=== PATIENT | female | born 1965 | race Hispanic/Latino ===

== ENCOUNTER 2017-11-22 22:22 | Emergency (ER) | payer SELFPAY | END 2017-11-22 23:05 | disposition home or self-care (01) | LOC: EDH 22:22 | DX: J10.1 Influenza due to other identified influenza virus with other respiratory manifestations (principal); I10 Essential (primary) hypertension ==

== ENCOUNTER 2019-01-25 14:00 | Emergency (ER) | payer SELFPAY ==
[2019-01-25 14:36] LABS: APPEARANCE,URINE TURBID (CLEAR); BILIRUBIN,URINE NEGATIVE (NEGATIVE); COLOR,URINE YELLOW (YELLOW); GLUCOSE, URINE (UA) NEGATIVE (NEGATIVE); KETONES,URINE NEGATIVE (NEGATIVE); LEUKOCYTE ESTERASE ,URINE LARGE (NEGATIVE); NITRATE,URINE NEGATIVE (NEGATIVE); OCCULT BLOOD,URINE LARGE (NEGATIVE); PH,URINE 6.5 (5.0-8.0); PROTEIN,URINE 100 mg/dL (NEGATIVE); UROBILINOGEN,URINE 0.2 mg/dL (0.2-1.0)
[2019-01-25 14:45] LABS: BACTERIA,URINE Few /HPF (None Seen); MUCUS,URINE Few LPF (None Seen); SQUAMOUS EPITHELIAL CELL,UR Few /HPF (0-2); WBC,URINE 26-50 /HPF (0-1)
[2019-01-25] MEDS ORDERED: NITROFURANTOIN MONOHYD/M-CRYST 100 MG CAPSULE PO ONE (15:15)
== END 2019-01-25 16:25 | disposition home or self-care (01) ==
LOC: EDH 14:00
DX: N39.0 Urinary tract infection, site not specified (principal); I10 Essential (primary) hypertension; Z87.891 Personal history of nicotine dependence
CPT/HCPCS: 81001

== ENCOUNTER 2019-02-17 20:47 | Emergency (ER) | payer SELFPAY | END 2019-02-17 21:25 | disposition home or self-care (01) | LOC: EDH 20:47 | DX: B02.9 Zoster without complications (principal); B36.0 Pityriasis versicolor; I10 Essential (primary) hypertension ==

== ENCOUNTER 2020-02-15 01:27 | Inpatient (IN) | payer OTHER, SELFPAY ==
[~2020-02-15] VITALS: Ht 152.4 cm; Wt 104.5 kg
[2020-02-15] MEDS ORDERED: DEXAMETHASONE SOD PHOSPHATE 10MG/ML 1ML VIAL ONE ×2 (01:47→21:08)
[2020-02-15 01:58] LABS: BASOPHILS % (AUTO) 0.3 % (0.0-5.0); HEMATOCRIT 41.9 % (36-48); LYMPHOCYTES % (AUTO) 11.1 % (21.0-51.0); MEAN CORPUSCULAR HEMOGLOBIN 30.4 pg (27.0-33.0); MEAN CORPUSCULAR HGB CONC 35.1 g/dL (32.0-36.0); MEAN CORPUSCULAR VOLUME 86.6 fL (79-99); MONOCYTES % (AUTO) 4.9 % (3.0-13.0); NEUTROPHILS % (AUTO) 82.2 % (40.0-77.0); PLATELET COUNT (AUTO) 285 K/uL (130-400); RED BLOOD CELL COUNT(AUTO) 4.84 MIL/uL (4.00-5.50); RED CELL DISTRIBUTION WIDTH 12.8 % (11.0-15.5)
[2020-02-15 02:08] LABS: INR 1.03 (0.85-1.15)
[2020-02-15 02:09] LABS: PARTIAL THROMBOPLASTIN TIME 21.2 SEC (26.3-35.5)
[2020-02-15 02:34] LABS: CREATININE 1.3 mg/dL (0.5-1.5); POTASSIUM 3.4 mmol/L (3.5-5.1)
[2020-02-15 02:36] LABS: ALBUMIN 2.7 g/dL (3.5-5.0); BILIRUBIN,TOTAL 0.4 mg/dL (0.2-1.0); TOTAL PROTEIN, SERUM 8.2 g/dL (6.0-8.3)
[2020-02-15] MEDS ORDERED: CEFTRIAXONE SODIUM 1 GM ONE (02:49)
[2020-02-15] MEDS ORDERED: AZITHROMYCIN 500MG+NS 250ML 250 ML IV ONE (02:49)
[2020-02-15] MEDS ORDERED: ACETAMINOPHEN 325 MG TAB ONE ×3 (02:50→18:38)
[2020-02-15 02:55] LABS: APPEARANCE,URINE Clear (CLEAR); BILIRUBIN,URINE Negative (NEGATIVE); COLOR,URINE Yellow (YELLOW); GLUCOSE, URINE (UA) 500 mg/dL (NEGATIVE); KETONES,URINE Negative (NEGATIVE); LEUKOCYTE ESTERASE ,URINE Moderate (NEGATIVE); NITRATE,URINE Negative (NEGATIVE); OCCULT BLOOD,URINE Negative (NEGATIVE); PH,URINE 6.5 (5.0-8.0); PROTEIN,URINE POS 1+ mg/dL (NEGATIVE); UROBILINOGEN,URINE 0.2 mg/dL (0.2-1.0)
[2020-02-15 03:09] LABS: BACTERIA,URINE Rare /HPF (None Seen); MUCUS,URINE Rare LPF (None Seen); RBC,URINE 0-1 /HPF (0-1); SQUAMOUS EPITHELIAL CELL,UR Few /HPF (0-2); YEAST,URINE BUDDING None Seen /HPF (None Seen)
[2020-02-15] MEDS ORDERED: PHARMACY COMMUNICATION**REMDESIVIR ORDER MISC SCH (05:15)
[2020-02-15] MEDS: DOXYCYCLINE 100MG+NS 250ML 250 ML IV SCH ×2 (05:15→17:15)
[2020-02-15] MEDS ORDERED: ERGOCALCIFEROL (VITAMIN D2) 50,000 UNIT CAPSULE PO ONE (05:15)
[2020-02-15] MEDS: CEFTRIAXONE SODIUM 1 GM IV SCH (05:15)
[2020-02-15] MEDS: DEXAMETHASONE SOD PHOSPHATE 4 MG/ML 1ML VIAL IVP SCH (05:15)
[2020-02-15 05:53] LABS: ABG BASE EXCESS -1.3 mmol/L (-2.0-3.0); ABG HCO3 23.4 mmol/L (21.0-28.0); ABG PCO2 39 mmHg (32-45)
[2020-02-15] MEDS ORDERED: DOXYCYCLINE 100MG+NS 250ML 250 ML IV ONE ×2 (06:19→16:17)
[2020-02-15] MEDS ORDERED: ERGOCALCIFEROL (VITAMIN D2) 50,000 UNIT CAPSULE ONE (06:19)
[2020-02-15 07:19] LABS: MAGNESIUM 2.3 mg/dL (1.80-2.40); PHOSPHORUS 4.1 mg/dL (2.5-4.9)
[2020-02-15] MEDS: INSULIN HUMULIN R 100 UNIT/ML 3ML SQ SCH ×7 (07:30→21:00)
[2020-02-15 07:56] LABS: ALBUMIN 2.4 g/dL (3.5-5.0); BILIRUBIN,TOTAL 0.3 mg/dL (0.2-1.0); CREATININE 1.1 mg/dL (0.5-1.5); POTASSIUM 3.7 mmol/L (3.5-5.1); TOTAL PROTEIN, SERUM 7.4 g/dL (6.0-8.3)
[2020-02-15] MEDS ORDERED: ENOXAPARIN SODIUM 60 MG/0.6 ML SQ ONE ×2 (08:15→20:57)
[2020-02-15] MEDS ORDERED: ASCORBIC ACID 500 MG TAB ONE (08:16)
[2020-02-15] MEDS ORDERED: ZINC SULFATE 220 CAPSULE ONE (08:16)
[2020-02-15] MEDS ORDERED: FAMOTIDINE/PF 20 MG/2 ML VIAL IV ONE ×2 (08:16→20:58)
[2020-02-15] MEDS ORDERED: INSULIN HUMULIN R 100 UNIT/ML 3ML ONE ×3 (08:17→16:18)
[2020-02-15] MEDS: ENOXAPARIN SODIUM 60 MG/0.6 ML SQ SCH ×2 (09:00→21:00)
[2020-02-15] MEDS: ASCORBIC ACID 500 MG TAB PO SCH (09:00)
[2020-02-15] MEDS: FAMOTIDINE/PF 20 MG/2 ML VIAL IV SCH ×2 (09:00→21:00)
[2020-02-15] MEDS: ZINC SULFATE 220 CAPSULE PO SCH (09:00)
[2020-02-15] MEDS ORDERED: REMDESIVIR (EUA) 520 200 MG in SODIUM CHLORIDE 0.9% 250 ML IV ONE (10:00)
[2020-02-15] MEDS ORDERED: COMPOUND IV REFRIGERATED 1 EACH IVSOLN MISC PRN (10:00)
[2020-02-15] MEDS ORDERED: ONDANSETRON HCL 4 MG/2 ML VIAL ONE (10:58)
[2020-02-15] MEDS: INSULIN GLARGINE 100 UNITS/ML 10 ML VIAL SQ SCH (21:00)
[2020-02-16] MEDS: DOXYCYCLINE 100MG+NS 250ML 250 ML IV SCH ×2 (05:15→17:36)
[2020-02-16] MEDS: DEXAMETHASONE SOD PHOSPHATE 4 MG/ML 1ML VIAL IVP SCH ×2 (05:15→21:12)
[2020-02-16] MEDS: CEFTRIAXONE SODIUM 1 GM IV SCH (05:15)
[2020-02-16] MEDS ORDERED: DOXYCYCLINE 100MG+NS 250ML 250 ML IV ONE (05:21)
[2020-02-16] MEDS ORDERED: DEXAMETHASONE SOD PHOSPHATE 4 MG/ML 1ML VIAL ONE (05:21)
[2020-02-16] MEDS ORDERED: CEFTRIAXONE SODIUM 1 GM ONE (05:22)
[2020-02-16] MEDS ORDERED: ACETAMINOPHEN 325 MG TAB ONE (05:22)
[2020-02-16] MEDS: PHARMACY COMMUNICATION MISC SCH (06:00)
[2020-02-16] MEDS: INSULIN HUMULIN R 100 UNIT/ML 3ML SQ SCH ×7 (07:30→21:00)
[2020-02-16 08:31] LABS: MEAN CORPUSCULAR HEMOGLOBIN 30.4 pg (27.0-33.0); MEAN CORPUSCULAR HGB CONC 33.6 g/dL (32.0-36.0); MEAN CORPUSCULAR VOLUME 90.5 fL (79-99); RED BLOOD CELL COUNT(AUTO) 4.31 MIL/uL (4.00-5.50); RED CELL DISTRIBUTION WIDTH 12.5 % (11.0-15.5); WHITE BLOOD COUNT (AUTO) 9.7 K/uL (4.8-10.8)
[2020-02-16 08:41] LABS: POTASSIUM 3.8 mmol/L (3.5-5.1)
[2020-02-16 08:46] LABS: ALBUMIN 2.5 g/dL (3.5-5.0); BILIRUBIN,TOTAL 0.4 mg/dL (0.2-1.0); TOTAL PROTEIN, SERUM 7.4 g/dL (6.0-8.3)
[2020-02-16 08:55] LABS: CRP QUANTITATIVE 213.7 mg/L (0.00-9.0)
[2020-02-16] MEDS: ZINC SULFATE 220 CAPSULE PO SCH (09:47)
[2020-02-16] MEDS: FAMOTIDINE/PF 20 MG/2 ML VIAL IV SCH ×2 (09:47→21:11)
[2020-02-16] MEDS: ASCORBIC ACID 500 MG TAB PO SCH (09:47)
[2020-02-16] MEDS: ENOXAPARIN SODIUM 60 MG/0.6 ML SQ SCH ×2 (09:48→21:11)
[2020-02-16] MEDS: GUAIFENESIN-CODEINE 5 ML SYRUP PO PRN ×2 (10:04→14:11)
[2020-02-16] MEDS: REMDESIVIR (EUA) 520 100 MG in SODIUM CHLORIDE 0.9% 250 ML IV SCH (13:10)
[2020-02-16 13:22] VITALS: BP 119/71
[2020-02-16 16:00] VITALS: BP 156/75
[2020-02-16] MEDS ORDERED: DEXAMETHASONE SOD PHOSPHATE 4 MG/ML 1ML VIAL IVP SCH (19:15)
[2020-02-16 20:00] VITALS: BP 142/66
[2020-02-16] MEDS: INSULIN GLARGINE 100 UNITS/ML 10 ML VIAL SQ SCH (21:00)
[2020-02-16 23:48] VITALS: BP 113/92
[2020-02-17 04:39] VITALS: BP 115/54
[2020-02-17 04:41] LABS: BASOPHILS % (AUTO) 0.2 % (0.0-5.0); EOSINOPHILS % (AUTO) 0.2 % (0.0-8.0); HEMATOCRIT 37.1 % (36-48); LYMPHOCYTES % (AUTO) 9.6 % (21.0-51.0); MEAN CORPUSCULAR HEMOGLOBIN 30.5 pg (27.0-33.0); MEAN CORPUSCULAR HGB CONC 34.5 g/dL (32.0-36.0); MEAN CORPUSCULAR VOLUME 88.5 fL (79-99); MONOCYTES % (AUTO) 2.2 % (3.0-13.0); NEUTROPHILS % (AUTO) 86.9 % (40.0-77.0); PLATELET COUNT (AUTO) 196 K/uL (130-400); RED BLOOD CELL COUNT(AUTO) 4.19 MIL/uL (4.00-5.50); RED CELL DISTRIBUTION WIDTH 12.4 % (11.0-15.5); WHITE BLOOD COUNT (AUTO) 9.9 K/uL (4.8-10.8)
[2020-02-17 04:57] LABS: ALBUMIN 2.3 g/dL (3.5-5.0); BILIRUBIN,TOTAL 0.5 mg/dL (0.2-1.0); CREATININE 0.9 mg/dL (0.5-1.5); POTASSIUM 3.4 mmol/L (3.5-5.1); TOTAL PROTEIN, SERUM 7.3 g/dL (6.0-8.3)
[2020-02-17 05:05] LABS: CRP QUANTITATIVE 227.4 mg/L (0.00-9.0)
[2020-02-17] MEDS ORDERED: POTASSIUM CHLORIDE 20MEQ/100ML 100 ML IV PRN (05:15)
[2020-02-17] MEDS ORDERED: POTASSIUM CHLORIDE 10% ELIXIR 20 MEQ/15 ML UDCUP PO PRN (05:15)
[2020-02-17] MEDS ORDERED: LIDOCAINE HCL-MPF 1% 2ML VIAL IV PRN (05:15)
[2020-02-17] MEDS: PHARMACY COMMUNICATION MISC SCH (05:30)
[2020-02-17] MEDS: INSULIN HUMULIN R 100 UNIT/ML 3ML SQ SCH ×7 (06:10→21:00)
[2020-02-17] MEDS: POTASSIUM CHLORIDE 20 MEQ ERTAB PO PRN (06:47)
[2020-02-17 08:00] VITALS: BP 125/53
[2020-02-17] MEDS: ASCORBIC ACID 500 MG TAB PO SCH (09:02)
[2020-02-17] MEDS: ZINC SULFATE 220 CAPSULE PO SCH (09:02)
[2020-02-17] MEDS: FAMOTIDINE/PF 20 MG/2 ML VIAL IV SCH ×2 (09:02→20:42)
[2020-02-17] MEDS: DEXAMETHASONE SOD PHOSPHATE 4 MG/ML 1ML VIAL IVP SCH ×2 (09:02→20:43)
[2020-02-17] MEDS: GUAIFENESIN-CODEINE 5 ML SYRUP PO PRN ×2 (09:03→20:50)
[2020-02-17] MEDS: ENOXAPARIN SODIUM 60 MG/0.6 ML SQ SCH ×2 (09:03→20:44)
[2020-02-17] MEDS: ONDANSETRON HCL 4 MG/2 ML VIAL IV PRN (09:14)
[2020-02-17 12:00] VITALS: BP 123/64
[2020-02-17] MEDS: REMDESIVIR (EUA) 520 100 MG in SODIUM CHLORIDE 0.9% 250 ML IV SCH (12:54)
[2020-02-17 16:00] VITALS: BP 115/71
[2020-02-17 20:30] VITALS: BP 128/65
[2020-02-17] MEDS: INSULIN GLARGINE 100 UNITS/ML 10 ML VIAL SQ SCH (21:39)
[2020-02-18] VITALS (8 sets, daily range): BP systolic 107–148; BP diastolic 55–92
[2020-02-18 04:48] LABS: BASOPHILS % (AUTO) 0.1 % (0.0-5.0); EOSINOPHILS % (AUTO) 0.1 % (0.0-8.0); HEMATOCRIT 40.6 % (36-48); LYMPHOCYTES % (AUTO) 7.3 % (21.0-51.0); MEAN CORPUSCULAR HEMOGLOBIN 30.4 pg (27.0-33.0); MEAN CORPUSCULAR HGB CONC 34.2 g/dL (32.0-36.0); MEAN CORPUSCULAR VOLUME 88.8 fL (79-99); NEUTROPHILS % (AUTO) 89.7 % (40.0-77.0); PLATELET COUNT (AUTO) 217 K/uL (130-400); RED BLOOD CELL COUNT(AUTO) 4.57 MIL/uL (4.00-5.50); RED CELL DISTRIBUTION WIDTH 12.3 % (11.0-15.5)
[2020-02-18 05:16] LABS: ALBUMIN 2.4 g/dL (3.5-5.0); BILIRUBIN,TOTAL 0.6 mg/dL (0.2-1.0); CREATININE 0.9 mg/dL (0.5-1.5); POTASSIUM 3.6 mmol/L (3.5-5.1); TOTAL PROTEIN, SERUM 7.8 g/dL (6.0-8.3)
[2020-02-18] MEDS: PHARMACY COMMUNICATION MISC SCH (05:31)
[2020-02-18] MEDS: INSULIN HUMULIN R 100 UNIT/ML 3ML SQ SCH ×7 (05:39→21:00)
[2020-02-18 06:13] LABS: CRP QUANTITATIVE 261.7 mg/L (0.00-9.0)
[2020-02-18] MEDS: ASCORBIC ACID 500 MG TAB PO SCH (09:01)
[2020-02-18] MEDS: ZINC SULFATE 220 CAPSULE PO SCH (09:01)
[2020-02-18] MEDS: FAMOTIDINE/PF 20 MG/2 ML VIAL IV SCH ×2 (09:02→21:41)
[2020-02-18] MEDS: ENOXAPARIN SODIUM 60 MG/0.6 ML SQ SCH ×2 (09:02→21:44)
[2020-02-18] MEDS: DEXAMETHASONE SOD PHOSPHATE 4 MG/ML 1ML VIAL IVP SCH ×2 (09:06→21:43)
[2020-02-18] MEDS: GUAIFENESIN-CODEINE 5 ML SYRUP PO PRN ×3 (09:10→21:44)
[2020-02-18] MEDS: ACETAMINOPHEN 325 MG TAB PO PRN (09:17)
[2020-02-18] MEDS: REMDESIVIR (EUA) 520 100 MG in SODIUM CHLORIDE 0.9% 250 ML IV SCH (12:27)
[2020-02-18] MEDS: INSULIN GLARGINE 100 UNITS/ML 10 ML VIAL SQ SCH (21:41)
[2020-02-19] VITALS: BP 105/73
[2020-02-19] MEDS: ACETAMINOPHEN 325 MG TAB PO PRN ×2 (00:53→18:34)
[2020-02-19 04:00] VITALS: BP 109/58
[2020-02-19 05:04] LABS: BASOPHILS % (AUTO) 0.1 % (0.0-5.0); HEMATOCRIT 38.1 % (36-48); LYMPHOCYTES % (AUTO) 5.4 % (21.0-51.0); MEAN CORPUSCULAR HEMOGLOBIN 30.5 pg (27.0-33.0); MEAN CORPUSCULAR HGB CONC 34.4 g/dL (32.0-36.0); MEAN CORPUSCULAR VOLUME 88.6 fL (79-99); MONOCYTES % (AUTO) 1.7 % (3.0-13.0); NEUTROPHILS % (AUTO) 91.5 % (40.0-77.0); PLATELET COUNT (AUTO) 181 K/uL (130-400); RED CELL DISTRIBUTION WIDTH 12.2 % (11.0-15.5); WHITE BLOOD COUNT (AUTO) 13.2 K/uL (4.8-10.8)
[2020-02-19 05:32] LABS: ALBUMIN 2.2 g/dL (3.5-5.0); BILIRUBIN,TOTAL 0.6 mg/dL (0.2-1.0); CREATININE 0.9 mg/dL (0.5-1.5); POTASSIUM 3.4 mmol/L (3.5-5.1); TOTAL PROTEIN, SERUM 7.6 g/dL (6.0-8.3)
[2020-02-19 06:04] LABS: CRP QUANTITATIVE 253.9 mg/L (0.00-9.0)
[2020-02-19] MEDS: GUAIFENESIN-CODEINE 5 ML SYRUP PO PRN ×2 (06:06→12:27)
[2020-02-19] MEDS: INSULIN HUMULIN R 100 UNIT/ML 3ML SQ SCH ×7 (07:08→21:00)
[2020-02-19 08:00] VITALS: BP 133/59
[2020-02-19] MEDS: ZINC SULFATE 220 CAPSULE PO SCH (08:29)
[2020-02-19] MEDS: ASCORBIC ACID 500 MG TAB PO SCH (08:29)
[2020-02-19] MEDS: DEXAMETHASONE SOD PHOSPHATE 4 MG/ML 1ML VIAL IVP SCH ×2 (08:30→20:00)
[2020-02-19] MEDS: FAMOTIDINE/PF 20 MG/2 ML VIAL IV SCH ×2 (08:30→19:59)
[2020-02-19] MEDS: ENOXAPARIN SODIUM 60 MG/0.6 ML SQ SCH ×2 (08:31→20:01)
[2020-02-19] MEDS: PHARMACY COMMUNICATION MISC SCH (11:30)
[2020-02-19 12:00] VITALS: BP 128/58
[2020-02-19] MEDS: REMDESIVIR (EUA) 520 100 MG in SODIUM CHLORIDE 0.9% 250 ML IV SCH (13:40)
[2020-02-19 16:00] VITALS: BP 128/84
[2020-02-19 19:00] VITALS: BP 123/66
[2020-02-19] MEDS: INSULIN GLARGINE 100 UNITS/ML 10 ML VIAL SQ SCH (21:00)
[2020-02-20] VITALS (7 sets, daily range): BP systolic 124–163; BP diastolic 60–81
[2020-02-20] MEDS: GUAIFENESIN-CODEINE 5 ML SYRUP PO PRN ×2 (00:42→08:25)
[2020-02-20 05:49] LABS: BASOPHILS % (AUTO) 0.1 % (0.0-5.0); HEMATOCRIT 38.6 % (36-48); LYMPHOCYTES % (AUTO) 4.5 % (21.0-51.0); MEAN CORPUSCULAR HEMOGLOBIN 30.1 pg (27.0-33.0); MEAN CORPUSCULAR HGB CONC 34.5 g/dL (32.0-36.0); MEAN CORPUSCULAR VOLUME 87.3 fL (79-99); MONOCYTES % (AUTO) 1.3 % (3.0-13.0); NEUTROPHILS % (AUTO) 93.2 % (40.0-77.0); PLATELET COUNT (AUTO) 165 K/uL (130-400); RED BLOOD CELL COUNT(AUTO) 4.42 MIL/uL (4.00-5.50); RED CELL DISTRIBUTION WIDTH 12.1 % (11.0-15.5); WHITE BLOOD COUNT (AUTO) 13.8 K/uL (4.8-10.8)
[2020-02-20 06:05] LABS: BILIRUBIN,TOTAL 0.5 mg/dL (0.2-1.0); CREATININE 0.8 mg/dL (0.5-1.5); MAGNESIUM 1.9 mg/dL (1.80-2.40); POTASSIUM 3.6 mmol/L (3.5-5.1); TOTAL PROTEIN, SERUM 7.2 g/dL (6.0-8.3)
[2020-02-20] MEDS: INSULIN HUMULIN R 100 UNIT/ML 3ML SQ SCH ×7 (06:59→21:32)
[2020-02-20] MEDS: FAMOTIDINE/PF 20 MG/2 ML VIAL IV SCH ×2 (08:22→21:23)
[2020-02-20] MEDS: DEXAMETHASONE SOD PHOSPHATE 4 MG/ML 1ML VIAL IVP SCH ×2 (08:23→21:23)
[2020-02-20] MEDS: ZINC SULFATE 220 CAPSULE PO SCH (08:23)
[2020-02-20] MEDS: ASCORBIC ACID 500 MG TAB PO SCH (08:23)
[2020-02-20] MEDS: POTASSIUM CHLORIDE 20 MEQ ERTAB PO PRN (08:24)
[2020-02-20] MEDS: ENOXAPARIN SODIUM 60 MG/0.6 ML SQ SCH ×2 (08:24→21:30)
[2020-02-20] MEDS ORDERED: MAGNESIUM 2GM PREMIX 50ML 50 ML IV PRN (11:00)
[2020-02-20] MEDS: ACETAMINOPHEN 325 MG TAB PO PRN (12:23)
[2020-02-20 13:06] LABS: ABG BASE EXCESS -2.3 mmol/L (-2.0-3.0); ABG HCO3 20.1 mmol/L (21.0-28.0); ABG OXYGEN SATURATION 93.3 % (95.0-99.0); ABG PCO2 29 mmHg (32-45)
[2020-02-20] MEDS ORDERED: METF500S7 PO (14:52)
[2020-02-20] MEDS ORDERED: ROSU40 PO (14:53)
[2020-02-20] MEDS: INSULIN GLARGINE 100 UNITS/ML 10 ML VIAL SQ SCH (21:27)
[2020-02-21] VITALS (10 sets, daily range): BP systolic 112–153; BP diastolic 47–79
[2020-02-21] MEDS: GUAIFENESIN-CODEINE 5 ML SYRUP PO PRN ×2 (02:13→20:45)
[2020-02-21 04:22] LABS: BASOPHILS % (AUTO) 0.1 % (0.0-5.0); HEMATOCRIT 41.8 % (36-48); LYMPHOCYTES % (AUTO) 4.3 % (21.0-51.0); MEAN CORPUSCULAR HEMOGLOBIN 29.7 pg (27.0-33.0); MEAN CORPUSCULAR HGB CONC 33.7 g/dL (32.0-36.0); MONOCYTES % (AUTO) 1.4 % (3.0-13.0); NEUTROPHILS % (AUTO) 93.1 % (40.0-77.0); PLATELET COUNT (AUTO) 213 K/uL (130-400); RED BLOOD CELL COUNT(AUTO) 4.75 MIL/uL (4.00-5.50); RED CELL DISTRIBUTION WIDTH 12.3 % (11.0-15.5); WHITE BLOOD COUNT (AUTO) 17.3 K/uL (4.8-10.8)
[2020-02-21 04:38] LABS: ALBUMIN 2.1 g/dL (3.5-5.0); BILIRUBIN,TOTAL 0.5 mg/dL (0.2-1.0); CREATININE 0.8 mg/dL (0.5-1.5); MAGNESIUM 2.4 mg/dL (1.80-2.40); POTASSIUM 3.8 mmol/L (3.5-5.1); TOTAL PROTEIN, SERUM 7.8 g/dL (6.0-8.3)
[2020-02-21 05:42] LABS: CRP QUANTITATIVE 209.8 mg/L (0.00-9.0)
[2020-02-21] MEDS: ZINC SULFATE 220 CAPSULE PO SCH (08:22)
[2020-02-21] MEDS: FAMOTIDINE/PF 20 MG/2 ML VIAL IV SCH ×2 (08:22→20:48)
[2020-02-21] MEDS: DEXAMETHASONE SOD PHOSPHATE 4 MG/ML 1ML VIAL IVP SCH ×2 (08:22→20:45)
[2020-02-21] MEDS: ASCORBIC ACID 500 MG TAB PO SCH (08:22)
[2020-02-21] MEDS: ENOXAPARIN SODIUM 60 MG/0.6 ML SQ SCH ×2 (08:23→20:47)
[2020-02-21] MEDS: INSULIN HUMULIN R 100 UNIT/ML 3ML SQ SCH ×7 (08:24→21:03)
[2020-02-21] MEDS ORDERED: PHARMACY COMMUNICATION MISC SCH (12:00)
[2020-02-21] MEDS ORDERED: COMPOUND IV REFRIGERATED 1 EACH IVSOLN MISC PRN (15:00)
[2020-02-21] MEDS ORDERED: REMDESIVIR (EUA) 520 200 MG in SODIUM CHLORIDE 0.9% 250 ML IV ONE (15:00)
[2020-02-21] MEDS: ACETAMINOPHEN 325 MG TAB PO PRN (20:48)
[2020-02-21] MEDS: INSULIN GLARGINE 100 UNITS/ML 10 ML VIAL SQ SCH (21:03)
[2020-02-22] VITALS (7 sets, daily range): BP systolic 106–141; BP diastolic 56–77
[2020-02-22] MEDS ORDERED: PHARMACY COMMUNICATION MISC SCH (06:00)
[2020-02-22 06:11] LABS: BASOPHILS % (AUTO) 0.1 % (0.0-5.0); HEMATOCRIT 41.7 % (36-48); MEAN CORPUSCULAR HEMOGLOBIN 30.5 pg (27.0-33.0); MEAN CORPUSCULAR HGB CONC 33.8 g/dL (32.0-36.0); MEAN CORPUSCULAR VOLUME 90.1 fL (79-99); MONOCYTES % (AUTO) 1.6 % (3.0-13.0); NEUTROPHILS % (AUTO) 91.7 % (40.0-77.0); PLATELET COUNT (AUTO) 163 K/uL (130-400); RED BLOOD CELL COUNT(AUTO) 4.63 MIL/uL (4.00-5.50); RED CELL DISTRIBUTION WIDTH 12.5 % (11.0-15.5)
[2020-02-22 06:40] LABS: BILIRUBIN,TOTAL 0.4 mg/dL (0.2-1.0); POTASSIUM 4.2 mmol/L (3.5-5.1); TOTAL PROTEIN, SERUM 7.5 g/dL (6.0-8.3)
[2020-02-22] MEDS: INSULIN HUMULIN R 100 UNIT/ML 3ML SQ SCH ×7 (06:40→20:08)
[2020-02-22 07:26] LABS: CRP QUANTITATIVE 175.3 mg/L (0.00-9.0)
[2020-02-22 08:00] LABS: CREATININE 0.9 mg/dL (0.5-1.5)
[2020-02-22] MEDS: ASCORBIC ACID 500 MG TAB PO SCH (09:22)
[2020-02-22] MEDS: ZINC SULFATE 220 CAPSULE PO SCH (09:22)
[2020-02-22] MEDS: DEXAMETHASONE SOD PHOSPHATE 4 MG/ML 1ML VIAL IVP SCH ×2 (09:23→20:14)
[2020-02-22] MEDS: FAMOTIDINE/PF 20 MG/2 ML VIAL IV SCH ×2 (09:23→20:14)
[2020-02-22] MEDS: ENOXAPARIN SODIUM 60 MG/0.6 ML SQ SCH ×2 (09:23→20:12)
[2020-02-22] MEDS: DOXYCYCLINE 100MG+NS 250ML 250 ML IV SCH (12:43)
[2020-02-22] MEDS: CEFEPIME HCL 2 GM VIAL IVP SCH ×2 (12:43→20:13)
[2020-02-22] MEDS: FUROSEMIDE 10 MG/ML 2ML VIAL IV SCH ×2 (12:43→20:14)
[2020-02-22] MEDS ORDERED: REMDESIVIR (EUA) 520 100 MG in SODIUM CHLORIDE 0.9% 250 ML IV SCH (15:00)
[2020-02-22] MEDS ORDERED: FLUCONAZOLE 100 MG TAB PO ONE (16:00)
[2020-02-22] MEDS: CLOTRIMAZOLE 10 MG TROCHE MM SCH (17:50)
[2020-02-22] MEDS: GUAIFENESIN-CODEINE 5 ML SYRUP PO PRN (17:50)
[2020-02-22] MEDS: INSULIN GLARGINE 100 UNITS/ML 10 ML VIAL SQ SCH (20:09)
[2020-02-23] MEDS: CLOTRIMAZOLE 10 MG TROCHE MM SCH ×5 (00:33→21:08)
[2020-02-23] MEDS: DOXYCYCLINE 100MG+NS 250ML 250 ML IV SCH ×2 (00:33→13:05)
[2020-02-23] MEDS: GUAIFENESIN-CODEINE 5 ML SYRUP PO PRN ×3 (02:33→20:56)
[2020-02-23] MEDS: CEFEPIME HCL 2 GM VIAL IVP SCH ×3 (03:19→20:58)
[2020-02-23 03:20] VITALS: BP 127/69
[2020-02-23] MEDS: FUROSEMIDE 10 MG/ML 2ML VIAL IV SCH ×3 (03:20→20:57)
[2020-02-23 05:52] LABS: BASOPHILS % (AUTO) 0.1 % (0.0-5.0); HEMATOCRIT 43.8 % (36-48); LYMPHOCYTES % (AUTO) 6.6 % (21.0-51.0); MEAN CORPUSCULAR HEMOGLOBIN 29.9 pg (27.0-33.0); MEAN CORPUSCULAR HGB CONC 33.3 g/dL (32.0-36.0); MEAN CORPUSCULAR VOLUME 89.8 fL (79-99); NEUTROPHILS % (AUTO) 90.4 % (40.0-77.0); PLATELET COUNT (AUTO) 188 K/uL (130-400); RED BLOOD CELL COUNT(AUTO) 4.88 MIL/uL (4.00-5.50); RED CELL DISTRIBUTION WIDTH 12.7 % (11.0-15.5); WHITE BLOOD COUNT (AUTO) 11.2 K/uL (4.8-10.8)
[2020-02-23 06:36] LABS: ALBUMIN 2.3 g/dL (3.5-5.0); BILIRUBIN,TOTAL 0.4 mg/dL (0.2-1.0); CREATININE 0.9 mg/dL (0.5-1.5); CRP QUANTITATIVE 136.7 mg/L (0.00-9.0); POTASSIUM 4.3 mmol/L (3.5-5.1); TOTAL PROTEIN, SERUM 7.7 g/dL (6.0-8.3)
[2020-02-23] MEDS: INSULIN HUMULIN R 100 UNIT/ML 3ML SQ SCH ×7 (06:49→22:10)
[2020-02-23 08:00] VITALS: BP 117/67
[2020-02-23] MEDS: ZINC SULFATE 220 CAPSULE PO SCH (08:45)
[2020-02-23] MEDS: ASCORBIC ACID 500 MG TAB PO SCH (08:45)
[2020-02-23] MEDS: DEXAMETHASONE SOD PHOSPHATE 4 MG/ML 1ML VIAL IVP SCH ×2 (08:46→20:57)
[2020-02-23] MEDS: FAMOTIDINE/PF 20 MG/2 ML VIAL IV SCH ×2 (08:46→20:57)
[2020-02-23] MEDS: ENOXAPARIN SODIUM 60 MG/0.6 ML SQ SCH ×2 (08:47→20:57)
[2020-02-23] MEDS ORDERED: ENOXAPARIN SODIUM 60 MG/0.6 ML SQ SCH (09:10)
[2020-02-23 12:00] VITALS: BP 116/59
[2020-02-23 16:00] VITALS: BP 135/74
[2020-02-23 20:00] VITALS: BP 134/64
[2020-02-23] MEDS: INSULIN GLARGINE 100 UNITS/ML 10 ML VIAL SQ SCH (22:09)
[2020-02-24 00:28] VITALS: BP 126/74
[2020-02-24] MEDS: DOXYCYCLINE 100MG+NS 250ML 250 ML IV SCH ×3 (00:28→23:11)
[2020-02-24 03:45] VITALS: BP 112/64
[2020-02-24 05:52] LABS: BASOPHILS % (AUTO) 0.2 % (0.0-5.0); HEMATOCRIT 43.3 % (36-48); LYMPHOCYTES % (AUTO) 7.8 % (21.0-51.0); MEAN CORPUSCULAR HEMOGLOBIN 29.7 pg (27.0-33.0); MEAN CORPUSCULAR HGB CONC 33.3 g/dL (32.0-36.0); MEAN CORPUSCULAR VOLUME 89.3 fL (79-99); MONOCYTES % (AUTO) 2.9 % (3.0-13.0); NEUTROPHILS % (AUTO) 87.7 % (40.0-77.0); PLATELET COUNT (AUTO) 205 K/uL (130-400); RED BLOOD CELL COUNT(AUTO) 4.85 MIL/uL (4.00-5.50); RED CELL DISTRIBUTION WIDTH 12.3 % (11.0-15.5); WHITE BLOOD COUNT (AUTO) 12.4 K/uL (4.8-10.8)
[2020-02-24] MEDS: CEFEPIME HCL 2 GM VIAL IVP SCH ×3 (05:58→21:52)
[2020-02-24] MEDS: FUROSEMIDE 10 MG/ML 2ML VIAL IV SCH ×3 (05:58→21:56)
[2020-02-24] MEDS: CLOTRIMAZOLE 10 MG TROCHE MM SCH ×4 (05:58→21:58)
[2020-02-24 06:25] LABS: ALBUMIN 2.1 g/dL (3.5-5.0); BILIRUBIN,TOTAL 0.4 mg/dL (0.2-1.0); CRP QUANTITATIVE 54.6 mg/L (0.00-9.0); POTASSIUM 4.1 mmol/L (3.5-5.1); TOTAL PROTEIN, SERUM 7.9 g/dL (6.0-8.3)
[2020-02-24] MEDS: INSULIN HUMULIN R 100 UNIT/ML 3ML SQ SCH ×7 (06:35→22:29)
[2020-02-24] MEDS: GUAIFENESIN-CODEINE 5 ML SYRUP PO PRN ×2 (06:38→21:53)
[2020-02-24 07:00] VITALS: BP 127/75
[2020-02-24] MEDS: FAMOTIDINE/PF 20 MG/2 ML VIAL IV SCH ×2 (08:30→21:56)
[2020-02-24] MEDS: DEXAMETHASONE SOD PHOSPHATE 4 MG/ML 1ML VIAL IVP SCH ×2 (08:30→21:56)
[2020-02-24] MEDS: ASCORBIC ACID 500 MG TAB PO SCH (08:31)
[2020-02-24] MEDS: ENOXAPARIN SODIUM 60 MG/0.6 ML SQ SCH ×2 (08:31→21:56)
[2020-02-24] MEDS: ZINC SULFATE 220 CAPSULE PO SCH (08:31)
[2020-02-24 10:20] VITALS: BP 124/70
[2020-02-24] MEDS: BENZONATATE 100 MG CAPSULE PO SCH ×2 (12:51→21:57)
[2020-02-24 15:00] VITALS: BP 116/52
[2020-02-24] MEDS: LACTULOSE 20 GM/30 ML UDCUP PO PRN (18:27)
[2020-02-24 20:40] VITALS: BP 116/52
[2020-02-24] MEDS: FLUTICASONE PROPIONATE 50MCG/SPRAY 16 GM BOTTLE EN SCH (21:52)
[2020-02-24] MEDS: ACETAMINOPHEN 325 MG TAB PO PRN (21:58)
[2020-02-24] MEDS: INSULIN GLARGINE 100 UNITS/ML 10 ML VIAL SQ SCH (22:29)
[2020-02-25 00:26] VITALS: BP 132/74
[2020-02-25 03:53] VITALS: BP 140/86
[2020-02-25 03:54] LABS: ABG BASE EXCESS -2.5 mmol/L (-2.0-3.0); ABG HCO3 21.4 mmol/L (21.0-28.0); ABG OXYGEN SATURATION 93.3 % (95.0-99.0); ABG PCO2 35 mmHg (32-45)
[2020-02-25] MEDS: CEFEPIME HCL 2 GM VIAL IVP SCH ×3 (04:28→21:45)
[2020-02-25] MEDS: FUROSEMIDE 10 MG/ML 2ML VIAL IV SCH ×3 (04:29→21:45)
[2020-02-25 05:50] LABS: BASOPHILS % (AUTO) 0.3 % (0.0-5.0); EOSINOPHILS % (AUTO) 0.2 % (0.0-8.0); HEMATOCRIT 45.7 % (36-48); LYMPHOCYTES % (AUTO) 9.1 % (21.0-51.0); MEAN CORPUSCULAR HEMOGLOBIN 29.5 pg (27.0-33.0); MEAN CORPUSCULAR VOLUME 89.4 fL (79-99); MONOCYTES % (AUTO) 4.7 % (3.0-13.0); NEUTROPHILS % (AUTO) 84.2 % (40.0-77.0); PLATELET COUNT (AUTO) 154 K/uL (130-400); RED BLOOD CELL COUNT(AUTO) 5.11 MIL/uL (4.00-5.50); RED CELL DISTRIBUTION WIDTH 12.4 % (11.0-15.5); WHITE BLOOD COUNT (AUTO) 11.3 K/uL (4.8-10.8)
[2020-02-25 06:04] LABS: ALBUMIN 2.3 g/dL (3.5-5.0); BILIRUBIN,TOTAL 0.4 mg/dL (0.2-1.0); CREATININE 1.1 mg/dL (0.5-1.5); CRP QUANTITATIVE 26.4 mg/L (0.00-9.0); POTASSIUM 3.7 mmol/L (3.5-5.1); TOTAL PROTEIN, SERUM 8.1 g/dL (6.0-8.3)
[2020-02-25] MEDS: CLOTRIMAZOLE 10 MG TROCHE MM SCH ×3 (06:11→17:09)
[2020-02-25] MEDS: INSULIN HUMULIN R 100 UNIT/ML 3ML SQ SCH ×7 (06:38→22:36)
[2020-02-25 08:00] VITALS: BP 121/62
[2020-02-25] MEDS: ZINC SULFATE 220 CAPSULE PO SCH (08:31)
[2020-02-25] MEDS: FAMOTIDINE/PF 20 MG/2 ML VIAL IV SCH ×2 (08:32→21:44)
[2020-02-25] MEDS: ASCORBIC ACID 500 MG TAB PO SCH (08:32)
[2020-02-25] MEDS: BENZONATATE 100 MG CAPSULE PO SCH ×2 (08:32→21:49)
[2020-02-25] MEDS: ENOXAPARIN SODIUM 60 MG/0.6 ML SQ SCH (08:32)
[2020-02-25] MEDS: FLUTICASONE PROPIONATE 50MCG/SPRAY 16 GM BOTTLE EN SCH (08:34)
[2020-02-25] MEDS: ACETAMINOPHEN 325 MG TAB PO PRN ×2 (11:06→21:50)
[2020-02-25] MEDS: DOXYCYCLINE 100MG+NS 250ML 250 ML IV SCH (11:08)
[2020-02-25 12:00] VITALS: BP 132/71
[2020-02-25] MEDS: DEXAMETHASONE SOD PHOSPHATE 4 MG/ML 1ML VIAL IVP SCH ×2 (12:32→21:45)
[2020-02-25 16:00] VITALS: BP 113/61
[2020-02-25] MEDS: GUAIFENESIN-CODEINE 5 ML SYRUP PO PRN (17:40)
[2020-02-25 19:57] VITALS: BP 139/69
[2020-02-25] MEDS: INSULIN GLARGINE 100 UNITS/ML 10 ML VIAL SQ SCH (22:37)
[2020-02-26] MEDS: DOXYCYCLINE 100MG+NS 250ML 250 ML IV SCH ×3 (01:03→22:52)
[2020-02-26] MEDS: CLOTRIMAZOLE 10 MG TROCHE MM SCH ×5 (01:03→22:05)
[2020-02-26] MEDS: ENOXAPARIN SODIUM 60 MG/0.6 ML SQ SCH ×3 (01:05→21:52)
[2020-02-26] MEDS: FLUTICASONE PROPIONATE 50MCG/SPRAY 16 GM BOTTLE EN SCH ×3 (01:06→22:09)
[2020-02-26 01:11] VITALS: BP 137/66
[2020-02-26 04:57] LABS: BASOPHILS % (AUTO) 0.3 % (0.0-5.0); HEMATOCRIT 45.3 % (36-48); MEAN CORPUSCULAR HEMOGLOBIN 30.2 pg (27.0-33.0); MEAN CORPUSCULAR HGB CONC 33.8 g/dL (32.0-36.0); MEAN CORPUSCULAR VOLUME 89.5 fL (79-99); MONOCYTES % (AUTO) 2.9 % (3.0-13.0); NEUTROPHILS % (AUTO) 87.6 % (40.0-77.0); PLATELET COUNT (AUTO) 145 K/uL (130-400); RED BLOOD CELL COUNT(AUTO) 5.06 MIL/uL (4.00-5.50); RED CELL DISTRIBUTION WIDTH 12.3 % (11.0-15.5); WHITE BLOOD COUNT (AUTO) 10.5 K/uL (4.8-10.8)
[2020-02-26] MEDS: CEFEPIME HCL 2 GM VIAL IVP SCH ×3 (04:59→21:54)
[2020-02-26] MEDS: FUROSEMIDE 10 MG/ML 2ML VIAL IV SCH ×3 (04:59→21:55)
[2020-02-26 05:05] VITALS: BP 124/63
[2020-02-26 05:22] LABS: ALBUMIN 2.4 g/dL (3.5-5.0); BILIRUBIN,TOTAL 0.5 mg/dL (0.2-1.0); CREATININE 0.9 mg/dL (0.5-1.5); CRP QUANTITATIVE 75.6 mg/L (0.00-9.0); POTASSIUM 4.2 mmol/L (3.5-5.1); TOTAL PROTEIN, SERUM 8.2 g/dL (6.0-8.3)
[2020-02-26] MEDS: INSULIN HUMULIN R 100 UNIT/ML 3ML SQ SCH ×7 (06:54→21:00)
[2020-02-26 08:00] VITALS: BP 118/64
[2020-02-26] MEDS: BENZONATATE 100 MG CAPSULE PO SCH ×2 (08:06→21:55)
[2020-02-26] MEDS: DEXAMETHASONE SOD PHOSPHATE 4 MG/ML 1ML VIAL IVP SCH ×2 (08:07→21:55)
[2020-02-26] MEDS: ZINC SULFATE 220 CAPSULE PO SCH (08:07)
[2020-02-26] MEDS: ASCORBIC ACID 500 MG TAB PO SCH (08:07)
[2020-02-26] MEDS: FAMOTIDINE/PF 20 MG/2 ML VIAL IV SCH ×2 (08:08→21:54)
[2020-02-26] MEDS: GUAIFENESIN-CODEINE 5 ML SYRUP PO PRN (11:57)
[2020-02-26 12:00] VITALS: BP 125/76
[2020-02-26] MEDS ORDERED: PHARMACY COMMUNICATION MISC SCH (14:15)
[2020-02-26] MEDS: PHENOL 177 ML BOTTLE PO PRN ×2 (15:00→22:09)
[2020-02-26 16:00] VITALS: BP 114/63
[2020-02-26 20:27] VITALS: BP 129/66
[2020-02-26] MEDS: ACETAMINOPHEN 325 MG TAB PO PRN (22:04)
[2020-02-26] MEDS: BIOTENE 44.3 ML SOLUTION MM PRN (22:07)
[2020-02-26] MEDS: INSULIN GLARGINE 100 UNITS/ML 10 ML VIAL SQ SCH (23:19)
[2020-02-27] MEDS: CEFEPIME HCL 2 GM VIAL IVP SCH ×3 (04:57→20:04)
[2020-02-27 05:00] VITALS: BP 121/90
[2020-02-27] MEDS: FUROSEMIDE 10 MG/ML 2ML VIAL IV SCH ×2 (05:00→17:03)
[2020-02-27] MEDS: CLOTRIMAZOLE 10 MG TROCHE MM SCH ×4 (05:39→23:08)
[2020-02-27 06:02] LABS: BASOPHILS % (AUTO) 0.3 % (0.0-5.0); EOSINOPHILS % (AUTO) 0.1 % (0.0-8.0); HEMATOCRIT 48.9 % (36-48); MEAN CORPUSCULAR HEMOGLOBIN 29.9 pg (27.0-33.0); MEAN CORPUSCULAR HGB CONC 33.1 g/dL (32.0-36.0); MEAN CORPUSCULAR VOLUME 90.2 fL (79-99); MONOCYTES % (AUTO) 3.1 % (3.0-13.0); NEUTROPHILS % (AUTO) 84.4 % (40.0-77.0); PLATELET COUNT (AUTO) 206 K/uL (130-400); RED BLOOD CELL COUNT(AUTO) 5.42 MIL/uL (4.00-5.50); RED CELL DISTRIBUTION WIDTH 12.7 % (11.0-15.5); WHITE BLOOD COUNT (AUTO) 15.9 K/uL (4.8-10.8)
[2020-02-27 06:24] LABS: ALBUMIN 2.7 g/dL (3.5-5.0); BILIRUBIN,TOTAL 0.5 mg/dL (0.2-1.0); CRP QUANTITATIVE 35.8 mg/L (0.00-9.0); POTASSIUM 4.1 mmol/L (3.5-5.1); TOTAL PROTEIN, SERUM 8.7 g/dL (6.0-8.3)
[2020-02-27] MEDS: INSULIN HUMULIN R 100 UNIT/ML 3ML SQ SCH ×7 (06:29→20:35)
[2020-02-27 08:00] VITALS: BP 128/76
[2020-02-27] MEDS: FAMOTIDINE/PF 20 MG/2 ML VIAL IV SCH ×2 (08:33→20:04)
[2020-02-27] MEDS: DEXAMETHASONE SOD PHOSPHATE 4 MG/ML 1ML VIAL IVP SCH ×2 (08:33→20:04)
[2020-02-27] MEDS: ASCORBIC ACID 500 MG TAB PO SCH (08:34)
[2020-02-27] MEDS: BENZONATATE 100 MG CAPSULE PO SCH ×2 (08:34→20:04)
[2020-02-27] MEDS: ENOXAPARIN SODIUM 60 MG/0.6 ML SQ SCH ×2 (08:34→20:04)
[2020-02-27] MEDS: ZINC SULFATE 220 CAPSULE PO SCH (08:34)
[2020-02-27] MEDS: FLUTICASONE PROPIONATE 50MCG/SPRAY 16 GM BOTTLE EN SCH ×2 (08:36→20:35)
[2020-02-27] MEDS: ACETAMINOPHEN 325 MG TAB PO PRN (08:49)
[2020-02-27] MEDS: GUAIFENESIN-CODEINE 5 ML SYRUP PO PRN (09:53)
[2020-02-27] MEDS: DOXYCYCLINE 100MG+NS 250ML 250 ML IV SCH ×2 (11:25→23:08)
[2020-02-27 11:59] VITALS: BP 103/69
[2020-02-27 15:59] VITALS: BP 100/68
[2020-02-27] MEDS: LORAZEPAM 0.5 MG TABLET PO PRN ×2 (16:01→20:38)
[2020-02-27 18:11] LABS: INR 1.08 (0.85-1.15); PROTHROMBIN TIME 11.5 SEC (9.6-11.6)
[2020-02-27] MEDS: INSULIN GLARGINE 100 UNITS/ML 10 ML VIAL SQ SCH (20:33)
[2020-02-27 21:00] VITALS: BP 118/64
[2020-02-28] VITALS: BP 143/87
[2020-02-28] MEDS: CEFEPIME HCL 2 GM VIAL IVP SCH ×3 (02:57→20:45)
[2020-02-28] MEDS: FUROSEMIDE 10 MG/ML 2ML VIAL IV SCH ×2 (02:58→15:33)
[2020-02-28] MEDS ORDERED: LORAZEPAM 1 MG TABLET PO ONE (03:00)
[2020-02-28 04:00] VITALS: BP 127/81
[2020-02-28] MEDS: CLOTRIMAZOLE 10 MG TROCHE MM SCH ×4 (05:50→23:43)
[2020-02-28 05:55] LABS: BASOPHILS % (AUTO) 0.5 % (0.0-5.0); EOSINOPHILS % (AUTO) 0.1 % (0.0-8.0); HEMATOCRIT 46.9 % (36-48); LYMPHOCYTES % (AUTO) 8.8 % (21.0-51.0); MEAN CORPUSCULAR HEMOGLOBIN 30.3 pg (27.0-33.0); MEAN CORPUSCULAR HGB CONC 33.7 g/dL (32.0-36.0); MONOCYTES % (AUTO) 4.4 % (3.0-13.0); NEUTROPHILS % (AUTO) 82.2 % (40.0-77.0); PLATELET COUNT (AUTO) 217 K/uL (130-400); RED BLOOD CELL COUNT(AUTO) 5.21 MIL/uL (4.00-5.50); RED CELL DISTRIBUTION WIDTH 12.7 % (11.0-15.5); WHITE BLOOD COUNT (AUTO) 18.5 K/uL (4.8-10.8)
[2020-02-28] MEDS: INSULIN HUMULIN R 100 UNIT/ML 3ML SQ SCH ×7 (05:56→21:12)
[2020-02-28 06:11] LABS: ALBUMIN 2.7 g/dL (3.5-5.0); BILIRUBIN,TOTAL 0.4 mg/dL (0.2-1.0); CREATININE 1.2 mg/dL (0.5-1.5); CRP QUANTITATIVE 16.1 mg/L (0.00-9.0); POTASSIUM 3.7 mmol/L (3.5-5.1); TOTAL PROTEIN, SERUM 8.3 g/dL (6.0-8.3)
[2020-02-28 08:16] VITALS: BP 137/81
[2020-02-28] MEDS: BENZONATATE 100 MG CAPSULE PO SCH ×2 (08:54→21:13)
[2020-02-28] MEDS: ASCORBIC ACID 500 MG TAB PO SCH (08:54)
[2020-02-28] MEDS: FAMOTIDINE/PF 20 MG/2 ML VIAL IV SCH ×2 (08:54→20:45)
[2020-02-28] MEDS: ZINC SULFATE 220 CAPSULE PO SCH (08:54)
[2020-02-28] MEDS: DEXAMETHASONE SOD PHOSPHATE 4 MG/ML 1ML VIAL IVP SCH ×2 (08:54→20:47)
[2020-02-28] MEDS: ENOXAPARIN SODIUM 60 MG/0.6 ML SQ SCH ×2 (08:55→20:47)
[2020-02-28] MEDS: DOXYCYCLINE 100MG+NS 250ML 250 ML IV SCH ×2 (11:34→23:43)
[2020-02-28] MEDS: FLUTICASONE PROPIONATE 50MCG/SPRAY 16 GM BOTTLE EN SCH ×2 (11:36→21:12)
[2020-02-28 12:20] VITALS: BP 118/73
[2020-02-28 16:00] VITALS: BP 131/58
[2020-02-28] MEDS: GUAIFENESIN-CODEINE 5 ML SYRUP PO PRN (18:12)
[2020-02-28 19:00] VITALS: BP_SYST 114; BP_SYST 122; BP_DIAS 61; BP_DIAS 92
[2020-02-28] MEDS: INSULIN GLARGINE 100 UNITS/ML 10 ML VIAL SQ SCH (21:10)
[2020-02-29] VITALS: BP 117/64
[2020-02-29] MEDS: FUROSEMIDE 10 MG/ML 2ML VIAL IV SCH ×2 (03:50→16:46)
[2020-02-29] MEDS: CEFEPIME HCL 2 GM VIAL IVP SCH ×3 (03:50→20:58)
[2020-02-29] MEDS: ACETAMINOPHEN 325 MG TAB PO PRN (03:53)
[2020-02-29 04:00] VITALS: BP 110/68
[2020-02-29] MEDS: CLOTRIMAZOLE 10 MG TROCHE MM SCH ×5 (05:25→23:42)
[2020-02-29 05:29] LABS: BASOPHILS % (AUTO) 0.3 % (0.0-5.0); LYMPHOCYTES % (AUTO) 11.7 % (21.0-51.0); MEAN CORPUSCULAR HEMOGLOBIN 29.6 pg (27.0-33.0); MEAN CORPUSCULAR HGB CONC 33.4 g/dL (32.0-36.0); MEAN CORPUSCULAR VOLUME 88.7 fL (79-99); MONOCYTES % (AUTO) 4.1 % (3.0-13.0); PLATELET COUNT (AUTO) 140 K/uL (130-400); RED CELL DISTRIBUTION WIDTH 12.6 % (11.0-15.5); WHITE BLOOD COUNT (AUTO) 13.3 K/uL (4.8-10.8)
[2020-02-29 06:00] LABS: ALBUMIN 2.8 g/dL (3.5-5.0); BILIRUBIN,TOTAL 0.5 mg/dL (0.2-1.0); CRP QUANTITATIVE 13.9 mg/L (0.00-9.0); POTASSIUM 3.9 mmol/L (3.5-5.1); TOTAL PROTEIN, SERUM 8.2 g/dL (6.0-8.3)
[2020-02-29] MEDS: INSULIN HUMULIN R 100 UNIT/ML 3ML SQ SCH ×7 (06:25→21:00)
[2020-02-29] MEDS: ZINC SULFATE 220 CAPSULE PO SCH (08:46)
[2020-02-29] MEDS: FAMOTIDINE/PF 20 MG/2 ML VIAL IV SCH ×2 (08:46→20:58)
[2020-02-29] MEDS: ASCORBIC ACID 500 MG TAB PO SCH (08:46)
[2020-02-29] MEDS: DEXAMETHASONE SOD PHOSPHATE 4 MG/ML 1ML VIAL IVP SCH ×2 (08:46→20:58)
[2020-02-29] MEDS: BENZONATATE 100 MG CAPSULE PO SCH ×2 (08:46→20:58)
[2020-02-29] MEDS: FLUTICASONE PROPIONATE 50MCG/SPRAY 16 GM BOTTLE EN SCH ×2 (08:47→21:00)
[2020-02-29] MEDS: ENOXAPARIN SODIUM 60 MG/0.6 ML SQ SCH ×2 (08:47→20:58)
[2020-02-29 09:33] VITALS: BP 93/53
[2020-02-29] MEDS: LORAZEPAM 0.5 MG TABLET PO PRN (11:14)
[2020-02-29 12:46] VITALS: BP 116/58
[2020-02-29] MEDS: DOXYCYCLINE 100MG+NS 250ML 250 ML IV SCH ×2 (12:56→23:42)
[2020-02-29 18:18] VITALS: BP 126/82
[2020-02-29] MEDS: GUAIFENESIN-CODEINE 5 ML SYRUP PO PRN (20:58)
[2020-02-29] MEDS: INSULIN GLARGINE 100 UNITS/ML 10 ML VIAL SQ SCH (21:02)
[2020-03-01 00:48] VITALS: BP 110/54
[2020-03-01 04:42] VITALS: BP 150/65
[2020-03-01 05:15] LABS: ALBUMIN 2.5 g/dL (3.5-5.0); BASOPHILS % (AUTO) 0.2 % (0.0-5.0); BILIRUBIN,TOTAL 0.3 mg/dL (0.2-1.0); CREATININE 0.8 mg/dL (0.5-1.5); CRP QUANTITATIVE 9.2 mg/L (0.00-9.0); EOSINOPHILS % (AUTO) 0.2 % (0.0-8.0); HEMATOCRIT 42.6 % (36-48); LYMPHOCYTES % (AUTO) 12.7 % (21.0-51.0); MEAN CORPUSCULAR HEMOGLOBIN 30.3 pg (27.0-33.0); MEAN CORPUSCULAR HGB CONC 33.3 g/dL (32.0-36.0); MEAN CORPUSCULAR VOLUME 90.8 fL (79-99); MONOCYTES % (AUTO) 5.1 % (3.0-13.0); POTASSIUM 3.9 mmol/L (3.5-5.1); RED BLOOD CELL COUNT(AUTO) 4.69 MIL/uL (4.00-5.50); RED CELL DISTRIBUTION WIDTH 12.6 % (11.0-15.5); WHITE BLOOD COUNT (AUTO) 10.4 K/uL (4.8-10.8)
[2020-03-01] MEDS: CLOTRIMAZOLE 10 MG TROCHE MM SCH ×4 (05:26→23:39)
[2020-03-01] MEDS: CEFEPIME HCL 2 GM VIAL IVP SCH ×3 (05:26→21:21)
[2020-03-01] MEDS: FUROSEMIDE 10 MG/ML 2ML VIAL IV SCH ×2 (05:26→15:36)
[2020-03-01 05:39] LABS: PLATELET COUNT (AUTO) 144 K/uL (130-400)
[2020-03-01] MEDS: INSULIN HUMULIN R 100 UNIT/ML 3ML SQ SCH ×7 (06:33→21:00)
[2020-03-01 08:00] VITALS: BP 107/62
[2020-03-01] MEDS: BENZONATATE 100 MG CAPSULE PO SCH ×2 (08:48→21:22)
[2020-03-01] MEDS: ASCORBIC ACID 500 MG TAB PO SCH (08:48)
[2020-03-01] MEDS: FAMOTIDINE/PF 20 MG/2 ML VIAL IV SCH ×2 (08:48→21:22)
[2020-03-01] MEDS: DEXAMETHASONE SOD PHOSPHATE 4 MG/ML 1ML VIAL IVP SCH ×2 (08:48→21:22)
[2020-03-01] MEDS: ZINC SULFATE 220 CAPSULE PO SCH (08:48)
[2020-03-01] MEDS: FLUTICASONE PROPIONATE 50MCG/SPRAY 16 GM BOTTLE EN SCH ×2 (08:49→21:30)
[2020-03-01] MEDS: ENOXAPARIN SODIUM 60 MG/0.6 ML SQ SCH ×2 (08:49→21:22)
[2020-03-01 12:00] VITALS: BP 117/63
[2020-03-01] MEDS: DOXYCYCLINE 100MG+NS 250ML 250 ML IV SCH ×2 (12:00→23:39)
[2020-03-01 16:00] VITALS: BP 149/70
[2020-03-01] MEDS: GUAIFENESIN-CODEINE 5 ML SYRUP PO PRN ×2 (16:52→23:40)
[2020-03-01] MEDS: LORAZEPAM 0.5 MG TABLET PO PRN (21:22)
[2020-03-01] MEDS: INSULIN GLARGINE 100 UNITS/ML 10 ML VIAL SQ SCH (21:24)
[2020-03-01 21:26] VITALS: BP 119/57
[2020-03-02 00:24] VITALS: BP 154/97
[2020-03-02] MEDS: CEFEPIME HCL 2 GM VIAL IVP SCH ×3 (03:33→21:36)
[2020-03-02] MEDS: FUROSEMIDE 10 MG/ML 2ML VIAL IV SCH ×2 (03:33→16:06)
[2020-03-02 05:00] LABS: HEMATOCRIT 41.4 % (36-48)
[2020-03-02 05:06] VITALS: BP 118/63
[2020-03-02 05:13] LABS: CREATININE 0.6 mg/dL (0.5-1.5); CRP QUANTITATIVE 3.6 mg/L (0.00-9.0); POTASSIUM 4.8 mmol/L (3.5-5.1)
[2020-03-02] MEDS: CLOTRIMAZOLE 10 MG TROCHE MM SCH ×3 (06:08→17:20)
[2020-03-02] MEDS: INSULIN HUMULIN R 100 UNIT/ML 3ML SQ SCH ×7 (06:42→21:00)
[2020-03-02] MEDS: LACTULOSE 20 GM/30 ML UDCUP PO PRN (06:45)
[2020-03-02] MEDS: GUAIFENESIN-CODEINE 5 ML SYRUP PO PRN (06:49)
[2020-03-02 07:53] VITALS: BP 116/66
[2020-03-02] MEDS: ENOXAPARIN SODIUM 60 MG/0.6 ML SQ SCH ×2 (10:14→21:50)
[2020-03-02] MEDS: FAMOTIDINE/PF 20 MG/2 ML VIAL IV SCH ×2 (10:14→21:48)
[2020-03-02] MEDS: ZINC SULFATE 220 CAPSULE PO SCH (10:14)
[2020-03-02] MEDS: BENZONATATE 100 MG CAPSULE PO SCH ×2 (10:14→21:36)
[2020-03-02] MEDS: FLUTICASONE PROPIONATE 50MCG/SPRAY 16 GM BOTTLE EN SCH ×2 (10:14→21:48)
[2020-03-02] MEDS: ASCORBIC ACID 500 MG TAB PO SCH (10:14)
[2020-03-02 11:51] VITALS: BP 121/64
[2020-03-02] MEDS: DOXYCYCLINE 100MG+NS 250ML 250 ML IV SCH (12:50)
[2020-03-02 16:00] VITALS: BP 140/72
[2020-03-02] MEDS: INSULIN GLARGINE 100 UNITS/ML 10 ML VIAL SQ SCH (21:34)
[2020-03-02] MEDS: ONDANSETRON HCL 4 MG/2 ML VIAL IV PRN (21:35)
[2020-03-02] MEDS: LORAZEPAM 0.5 MG TABLET PO PRN (21:36)
[2020-03-02] MEDS: DEXAMETHASONE SOD PHOSPHATE 4 MG/ML 1ML VIAL IVP SCH (21:36)
[2020-03-02 21:45] VITALS: BP 123/61
[2020-03-03] MEDS ORDERED: OXYMETAZOLINE HCL SPRAY 15 ML BOTTLE EN PRN (00:45)
[2020-03-03] MEDS: CLOTRIMAZOLE 10 MG TROCHE MM SCH ×4 (02:23→18:53)
[2020-03-03] MEDS: DOXYCYCLINE 100MG+NS 250ML 250 ML IV SCH ×2 (02:23→14:19)
[2020-03-03] MEDS: GUAIFENESIN-CODEINE 5 ML SYRUP PO PRN ×2 (03:47→18:53)
[2020-03-03] MEDS: CEFEPIME HCL 2 GM VIAL IVP SCH ×3 (03:47→19:59)
[2020-03-03] MEDS: FUROSEMIDE 10 MG/ML 2ML VIAL IV SCH ×2 (03:48→14:30)
[2020-03-03 06:00] LABS: BASOPHILS % (AUTO) 0.3 % (0.0-5.0); EOSINOPHILS % (AUTO) 0.1 % (0.0-8.0); HEMATOCRIT 41.8 % (36-48); LYMPHOCYTES % (AUTO) 10.1 % (21.0-51.0); MEAN CORPUSCULAR HGB CONC 33.3 g/dL (32.0-36.0); MEAN CORPUSCULAR VOLUME 90.3 fL (79-99); MONOCYTES % (AUTO) 3.6 % (3.0-13.0); NEUTROPHILS % (AUTO) 83.2 % (40.0-77.0); PLATELET COUNT (AUTO) 105 K/uL (130-400); RED BLOOD CELL COUNT(AUTO) 4.63 MIL/uL (4.00-5.50); RED CELL DISTRIBUTION WIDTH 12.8 % (11.0-15.5); WHITE BLOOD COUNT (AUTO) 11.5 K/uL (4.8-10.8)
[2020-03-03] MEDS: INSULIN HUMULIN R 100 UNIT/ML 3ML SQ SCH ×7 (06:26→20:02)
[2020-03-03 06:40] LABS: ALBUMIN 2.6 g/dL (3.5-5.0); BILIRUBIN,TOTAL 0.3 mg/dL (0.2-1.0); CREATININE 0.9 mg/dL (0.5-1.5); CRP QUANTITATIVE 13.2 mg/L (0.00-9.0); TOTAL PROTEIN, SERUM 6.9 g/dL (6.0-8.3)
[2020-03-03 06:52] VITALS: BP 130/60
[2020-03-03 08:47] VITALS: BP 107/65
[2020-03-03] MEDS ORDERED: DEXAMETHASONE SOD PHOSPHATE 4 MG/ML 1ML VIAL IVP SCH (09:00)
[2020-03-03] MEDS: FLUNISOLIDE 25 MCG/SPRAY 25 ML NASAL SPRY EN SCH ×2 (09:00→21:00)
[2020-03-03] MEDS: ASCORBIC ACID 500 MG TAB PO SCH (10:11)
[2020-03-03] MEDS: FAMOTIDINE/PF 20 MG/2 ML VIAL IV SCH ×2 (10:12→19:59)
[2020-03-03] MEDS: DEXAMETHASONE SOD PHOSPHATE 4 MG/ML 1ML VIAL IVP SCH ×2 (10:12→19:59)
[2020-03-03] MEDS: BENZONATATE 100 MG CAPSULE PO SCH ×2 (10:12→19:59)
[2020-03-03] MEDS: ZINC SULFATE 220 CAPSULE PO SCH (10:12)
[2020-03-03] MEDS: ENOXAPARIN SODIUM 60 MG/0.6 ML SQ SCH ×2 (10:17→20:05)
[2020-03-03] MEDS: FLUTICASONE PROPIONATE 50MCG/SPRAY 16 GM BOTTLE EN SCH ×2 (10:18→21:00)
[2020-03-03] MEDS: PHENOL 177 ML BOTTLE PO PRN (10:18)
[2020-03-03] MEDS: BIOTENE 44.3 ML SOLUTION MM PRN (10:19)
[2020-03-03] MEDS ORDERED: ALBUMIN (HUMAN) 25% 50 ML IV SCH (11:00)
[2020-03-03] MEDS ORDERED: IPRATROPIUM 0.5 MG/2.5 ML INH IH SCH (12:00)
[2020-03-03 12:35] VITALS: BP 105/60
[2020-03-03 16:57] VITALS: BP 122/62
[2020-03-03] MEDS ORDERED: ALBUTEROL SULFATE 0.042% 1.25 MG/3 ML INH IH SCH (18:00)
[2020-03-03] MEDS ORDERED: PHARMACY COMMUNICATION MISC SCH (19:15)
[2020-03-03 19:51] VITALS: BP 111/53
[2020-03-03] MEDS: INSULIN GLARGINE 100 UNITS/ML 10 ML VIAL SQ SCH (20:03)
[2020-03-03] MEDS: ALBUTEROL INHALER 90MCG/INH IH SCH (23:38)
[2020-03-04 00:01] VITALS: BP 104/58
[2020-03-04] MEDS: GUAIFENESIN-CODEINE 5 ML SYRUP PO PRN ×4 (01:54→21:04)
[2020-03-04] MEDS: CLOTRIMAZOLE 10 MG TROCHE MM SCH ×4 (01:54→17:08)
[2020-03-04] MEDS: DOXYCYCLINE 100MG+NS 250ML 250 ML IV SCH ×2 (01:54→11:43)
[2020-03-04 03:46] LABS: ABG BASE EXCESS -0.7 mmol/L (-2.0-3.0); ABG HCO3 24.5 mmol/L (21.0-28.0); ABG OXYGEN SATURATION 96.3 % (95.0-99.0); ABG PCO2 43 mmHg (32-45)
[2020-03-04] MEDS: CEFEPIME HCL 2 GM VIAL IVP SCH ×3 (03:52→21:04)
[2020-03-04] MEDS: FUROSEMIDE 10 MG/ML 2ML VIAL IV SCH (03:53)
[2020-03-04 04:01] VITALS: BP 107/52
[2020-03-04] MEDS: ALBUTEROL INHALER 90MCG/INH IH SCH ×3 (05:15→17:08)
[2020-03-04 05:35] LABS: BASOPHILS % (AUTO) 0.3 % (0.0-5.0); HEMATOCRIT 41.6 % (36-48); LYMPHOCYTES % (AUTO) 12.7 % (21.0-51.0); MEAN CORPUSCULAR HEMOGLOBIN 29.3 pg (27.0-33.0); MEAN CORPUSCULAR HGB CONC 32.5 g/dL (32.0-36.0); MEAN CORPUSCULAR VOLUME 90.4 fL (79-99); MONOCYTES % (AUTO) 5.3 % (3.0-13.0); NEUTROPHILS % (AUTO) 77.5 % (40.0-77.0); PLATELET COUNT (AUTO) 102 K/uL (130-400); RED CELL DISTRIBUTION WIDTH 12.9 % (11.0-15.5); WHITE BLOOD COUNT (AUTO) 8.8 K/uL (4.8-10.8)
[2020-03-04 05:54] LABS: ALBUMIN 2.6 g/dL (3.5-5.0); BILIRUBIN,TOTAL 0.3 mg/dL (0.2-1.0); CREATININE 0.9 mg/dL (0.5-1.5); CRP QUANTITATIVE 13.3 mg/L (0.00-9.0); POTASSIUM 4.2 mmol/L (3.5-5.1)
[2020-03-04] MEDS: INSULIN HUMULIN R 100 UNIT/ML 3ML SQ SCH ×7 (06:45→20:50)
[2020-03-04 08:00] VITALS: BP 122/66
[2020-03-04] MEDS: FLUNISOLIDE 25 MCG/SPRAY 25 ML NASAL SPRY EN SCH ×2 (10:32→21:19)
[2020-03-04] MEDS: FLUTICASONE PROPIONATE 50MCG/SPRAY 16 GM BOTTLE EN SCH ×2 (10:32→21:19)
[2020-03-04] MEDS: ASCORBIC ACID 500 MG TAB PO SCH (10:34)
[2020-03-04] MEDS: DEXAMETHASONE SOD PHOSPHATE 4 MG/ML 1ML VIAL IVP SCH ×2 (10:34→21:05)
[2020-03-04] MEDS: BENZONATATE 100 MG CAPSULE PO SCH ×2 (10:34→21:05)
[2020-03-04] MEDS: ENOXAPARIN SODIUM 60 MG/0.6 ML SQ SCH ×2 (10:34→20:49)
[2020-03-04] MEDS: ZINC SULFATE 220 CAPSULE PO SCH (10:34)
[2020-03-04] MEDS: FAMOTIDINE 20MG TAB 20 MG TAB PO SCH ×2 (10:35→21:05)
[2020-03-04] MEDS: POLYETHYLENE GLYCOL 3350 17 GM POWD.PACK PO SCH (10:37)
[2020-03-04 12:00] VITALS: BP 91/61
[2020-03-04 16:00] VITALS: BP 105/63
[2020-03-04 20:00] VITALS: BP 106/77
[2020-03-04] MEDS: INSULIN GLARGINE 100 UNITS/ML 10 ML VIAL SQ SCH (21:10)
[2020-03-05] VITALS: BP_SYST 110; BP_SYST 122; BP_DIAS 68; BP_DIAS 74
[2020-03-05] MEDS: DOXYCYCLINE 100MG+NS 250ML 250 ML IV SCH ×2 (00:38→11:16)
[2020-03-05] MEDS: CLOTRIMAZOLE 10 MG TROCHE MM SCH ×4 (00:38→18:26)
[2020-03-05] MEDS: LORAZEPAM 0.5 MG TABLET PO PRN (00:38)
[2020-03-05] MEDS: ALBUTEROL INHALER 90MCG/INH IH SCH ×4 (00:39→18:23)
[2020-03-05 03:47] VITALS: BP 123/64
[2020-03-05] MEDS: CEFEPIME HCL 2 GM VIAL IVP SCH ×4 (04:00→22:49)
[2020-03-05] MEDS: INSULIN HUMULIN R 100 UNIT/ML 3ML SQ SCH ×7 (07:30→22:46)
[2020-03-05 07:49] LABS: ABG BASE EXCESS -3.8 mmol/L (-2.0-3.0); ABG HCO3 21.8 mmol/L (21.0-28.0); ABG PCO2 42 mmHg (32-45)
[2020-03-05 08:24] LABS: BASOPHILS % (AUTO) 0.4 % (0.0-5.0); EOSINOPHILS % (AUTO) 0.1 % (0.0-8.0); HEMATOCRIT 45.7 % (36-48); LYMPHOCYTES % (AUTO) 7.3 % (21.0-51.0); MEAN CORPUSCULAR HEMOGLOBIN 30.2 pg (27.0-33.0); MEAN CORPUSCULAR VOLUME 91.4 fL (79-99); MONOCYTES % (AUTO) 3.5 % (3.0-13.0); NEUTROPHILS % (AUTO) 83.8 % (40.0-77.0); PLATELET COUNT (AUTO) 152 K/uL (130-400); RED CELL DISTRIBUTION WIDTH 13.2 % (11.0-15.5); WHITE BLOOD COUNT (AUTO) 14.7 K/uL (4.8-10.8)
[2020-03-05 08:40] LABS: ALBUMIN 2.9 g/dL (3.5-5.0); BILIRUBIN,TOTAL 0.4 mg/dL (0.2-1.0); CREATININE 0.9 mg/dL (0.5-1.5); POTASSIUM 4.1 mmol/L (3.5-5.1); TOTAL PROTEIN, SERUM 7.7 g/dL (6.0-8.3)
[2020-03-05] MEDS: DEXAMETHASONE SOD PHOSPHATE 4 MG/ML 1ML VIAL IVP SCH ×2 (09:00→22:50)
[2020-03-05] MEDS: ASCORBIC ACID 500 MG TAB PO SCH (09:00)
[2020-03-05] MEDS: BENZONATATE 100 MG CAPSULE PO SCH ×2 (09:00→22:50)
[2020-03-05] MEDS: ENOXAPARIN SODIUM 60 MG/0.6 ML SQ SCH ×2 (09:00→22:57)
[2020-03-05] MEDS: POLYETHYLENE GLYCOL 3350 17 GM POWD.PACK PO SCH (09:00)
[2020-03-05] MEDS: ZINC SULFATE 220 CAPSULE PO SCH (09:00)
[2020-03-05] MEDS: FLUTICASONE PROPIONATE 50MCG/SPRAY 16 GM BOTTLE EN SCH ×2 (09:00→22:49)
[2020-03-05] MEDS: FLUNISOLIDE 25 MCG/SPRAY 25 ML NASAL SPRY EN SCH ×2 (09:00→22:50)
[2020-03-05] MEDS: FAMOTIDINE 20MG TAB 20 MG TAB PO SCH ×2 (09:00→22:50)
[2020-03-05] MEDS ORDERED: HYDROMORPHONE HCL 2 MG TAB PO PRN (10:45)
[2020-03-05] MEDS ORDERED: SODIUM CHLORIDE 0.9% 250 ML IV ONE (11:34)
[2020-03-05 16:00] VITALS: BP 126/54
[2020-03-05 20:46] VITALS: BP 113/73
[2020-03-05] MEDS: INSULIN GLARGINE 100 UNITS/ML 10 ML VIAL SQ SCH (22:47)
[2020-03-05] MEDS: ACETAMINOPHEN 325 MG TAB PO PRN (22:51)
[2020-03-06 00:37] VITALS: BP 114/60
[2020-03-06] MEDS: CLOTRIMAZOLE 10 MG TROCHE MM SCH ×5 (02:44→23:16)
[2020-03-06 06:14] LABS: BASOPHILS % (AUTO) 0.2 % (0.0-5.0); EOSINOPHILS % (AUTO) 0.1 % (0.0-8.0); LYMPHOCYTES % (AUTO) 12.8 % (21.0-51.0); MEAN CORPUSCULAR HEMOGLOBIN 30.5 pg (27.0-33.0); MEAN CORPUSCULAR HGB CONC 33.7 g/dL (32.0-36.0); MEAN CORPUSCULAR VOLUME 90.5 fL (79-99); NEUTROPHILS % (AUTO) 81.6 % (40.0-77.0); PLATELET COUNT (AUTO) 107 K/uL (130-400); RED BLOOD CELL COUNT(AUTO) 4.53 MIL/uL (4.00-5.50); WHITE BLOOD COUNT (AUTO) 9.2 K/uL (4.8-10.8)
[2020-03-06 06:24] VITALS: BP 117/66
[2020-03-06 06:24] LABS: CREATININE 0.7 mg/dL (0.5-1.5); CRP QUANTITATIVE 11.3 mg/L (0.00-9.0); POTASSIUM 4.2 mmol/L (3.5-5.1)
[2020-03-06] MEDS: CEFEPIME HCL 2 GM VIAL IVP SCH ×3 (06:33→19:53)
[2020-03-06] MEDS: ALBUTEROL INHALER 90MCG/INH IH SCH ×5 (06:34→23:16)
[2020-03-06] MEDS: INSULIN HUMULIN R 100 UNIT/ML 3ML SQ SCH ×7 (06:37→22:43)
[2020-03-06 08:27] VITALS: BP 118/61
[2020-03-06] MEDS: POLYETHYLENE GLYCOL 3350 17 GM POWD.PACK PO SCH (09:00)
[2020-03-06] MEDS: ENOXAPARIN SODIUM 60 MG/0.6 ML SQ SCH ×2 (09:47→19:42)
[2020-03-06] MEDS: ZINC SULFATE 220 CAPSULE PO SCH (09:48)
[2020-03-06] MEDS: BENZONATATE 100 MG CAPSULE PO SCH ×2 (09:48→19:53)
[2020-03-06] MEDS: DEXAMETHASONE SOD PHOSPHATE 4 MG/ML 1ML VIAL IVP SCH ×2 (09:48→19:53)
[2020-03-06] MEDS: FLUNISOLIDE 25 MCG/SPRAY 25 ML NASAL SPRY EN SCH ×2 (09:48→19:54)
[2020-03-06] MEDS: ASCORBIC ACID 500 MG TAB PO SCH (09:48)
[2020-03-06] MEDS: FAMOTIDINE 20MG TAB 20 MG TAB PO SCH ×2 (09:48→19:53)
[2020-03-06] MEDS: FLUTICASONE PROPIONATE 50MCG/SPRAY 16 GM BOTTLE EN SCH ×2 (09:48→19:54)
[2020-03-06] MEDS ORDERED: DEXAMETHASONE SOD PHOSPHATE 4 MG/ML 1ML VIAL IVP SCH (10:30)
[2020-03-06] MEDS ORDERED: CLONAZEPAM 1 MG TABLET PO ONE (10:45)
[2020-03-06] MEDS ORDERED: FUROSEMIDE 10 MG/ML 2ML VIAL IV SCH (10:45)
[2020-03-06] MEDS ORDERED: CLONAZEPAM 1 MG TABLET PO SCH (11:00)
[2020-03-06] MEDS ORDERED: CLONAZEPAM 1 MG TABLET PO PRN (11:00)
[2020-03-06 12:17] VITALS: BP 153/78
[2020-03-06 16:30] VITALS: BP 136/89
[2020-03-06] MEDS: ACETAMINOPHEN 325 MG TAB PO PRN ×3 (17:39→22:52)
[2020-03-06 19:00] VITALS: BP 107/50
[2020-03-06] MEDS: INSULIN GLARGINE 100 UNITS/ML 10 ML VIAL SQ SCH (22:41)
[2020-03-06] MEDS: GUAIFENESIN-CODEINE 5 ML SYRUP PO PRN (23:16)
[2020-03-07] VITALS: BP 118/52
[2020-03-07 04:00] VITALS: BP 120/68
[2020-03-07 04:55] LABS: BASOPHILS % (AUTO) 0.1 % (0.0-5.0); EOSINOPHILS % (AUTO) 0.1 % (0.0-8.0); HEMATOCRIT 42.2 % (36-48); LYMPHOCYTES % (AUTO) 11.8 % (21.0-51.0); MEAN CORPUSCULAR HGB CONC 33.2 g/dL (32.0-36.0); MEAN CORPUSCULAR VOLUME 90.4 fL (79-99); NEUTROPHILS % (AUTO) 81.1 % (40.0-77.0); PLATELET COUNT (AUTO) 111 K/uL (130-400); RED BLOOD CELL COUNT(AUTO) 4.67 MIL/uL (4.00-5.50); RED CELL DISTRIBUTION WIDTH 13.2 % (11.0-15.5); WHITE BLOOD COUNT (AUTO) 9.1 K/uL (4.8-10.8)
[2020-03-07 05:14] LABS: CREATININE 0.8 mg/dL (0.5-1.5); CRP QUANTITATIVE 4.6 mg/L (0.00-9.0); POTASSIUM 3.9 mmol/L (3.5-5.1)
[2020-03-07] MEDS: INSULIN HUMULIN R 100 UNIT/ML 3ML SQ SCH ×7 (06:43→21:00)
[2020-03-07] MEDS: ALBUTEROL INHALER 90MCG/INH IH SCH ×3 (06:44→17:15)
[2020-03-07] MEDS: CLOTRIMAZOLE 10 MG TROCHE MM SCH ×3 (06:53→17:15)
[2020-03-07] MEDS: CEFEPIME HCL 2 GM VIAL IVP SCH (06:53)
[2020-03-07 08:00] VITALS: BP 114/64
[2020-03-07] MEDS: FLUTICASONE PROPIONATE 50MCG/SPRAY 16 GM BOTTLE EN SCH ×2 (08:31→20:10)
[2020-03-07] MEDS: FLUNISOLIDE 25 MCG/SPRAY 25 ML NASAL SPRY EN SCH ×2 (08:31→20:11)
[2020-03-07] MEDS: BENZONATATE 100 MG CAPSULE PO SCH ×2 (08:32→20:09)
[2020-03-07] MEDS: POLYETHYLENE GLYCOL 3350 17 GM POWD.PACK PO SCH (08:32)
[2020-03-07] MEDS: ZINC SULFATE 220 CAPSULE PO SCH (08:32)
[2020-03-07] MEDS: DEXAMETHASONE SOD PHOSPHATE 4 MG/ML 1ML VIAL IVP SCH ×2 (08:32→20:10)
[2020-03-07] MEDS: FAMOTIDINE 20MG TAB 20 MG TAB PO SCH ×2 (08:32→20:09)
[2020-03-07] MEDS: ASCORBIC ACID 500 MG TAB PO SCH (08:32)
[2020-03-07] MEDS: ENOXAPARIN SODIUM 60 MG/0.6 ML SQ SCH ×2 (08:33→20:10)
[2020-03-07 11:49] VITALS: BP 143/68
[2020-03-07] MEDS: GUAIFENESIN-CODEINE 5 ML SYRUP PO PRN ×2 (13:50→20:09)
[2020-03-07 15:53] VITALS: BP 112/48
[2020-03-07 20:00] VITALS: BP 115/74
[2020-03-07] MEDS ORDERED: CLONAZEPAM 0.5 MG TABLET PO SCH (21:00)
[2020-03-07] MEDS: INSULIN GLARGINE 100 UNITS/ML 10 ML VIAL SQ SCH (22:20)
[2020-03-08] VITALS (7 sets, daily range): BP systolic 112–155; BP diastolic 64–94
[2020-03-08] MEDS: CLOTRIMAZOLE 10 MG TROCHE MM SCH ×5 (02:39→21:32)
[2020-03-08] MEDS: INSULIN HUMULIN R 100 UNIT/ML 3ML SQ SCH ×7 (06:39→21:51)
[2020-03-08] MEDS: GUAIFENESIN-CODEINE 5 ML SYRUP PO PRN (06:43)
[2020-03-08] MEDS: ALBUTEROL INHALER 90MCG/INH IH SCH ×5 (06:45→21:37)
[2020-03-08 06:59] LABS: BASOPHILS % (AUTO) 0.2 % (0.0-5.0); EOSINOPHILS % (AUTO) 0.2 % (0.0-8.0); HEMATOCRIT 43.1 % (36-48); LYMPHOCYTES % (AUTO) 14.5 % (21.0-51.0); MEAN CORPUSCULAR HEMOGLOBIN 29.9 pg (27.0-33.0); MEAN CORPUSCULAR HGB CONC 32.9 g/dL (32.0-36.0); MEAN CORPUSCULAR VOLUME 90.7 fL (79-99); MONOCYTES % (AUTO) 4.2 % (3.0-13.0); NEUTROPHILS % (AUTO) 78.3 % (40.0-77.0); PLATELET COUNT (AUTO) 100 K/uL (130-400); RED BLOOD CELL COUNT(AUTO) 4.75 MIL/uL (4.00-5.50); RED CELL DISTRIBUTION WIDTH 13.2 % (11.0-15.5); WHITE BLOOD COUNT (AUTO) 8.8 K/uL (4.8-10.8)
[2020-03-08 07:23] LABS: ALBUMIN 2.9 g/dL (3.5-5.0); BILIRUBIN,TOTAL 0.3 mg/dL (0.2-1.0); CREATININE 0.6 mg/dL (0.5-1.5); CRP QUANTITATIVE 16.4 mg/L (0.00-9.0); TOTAL PROTEIN, SERUM 7.1 g/dL (6.0-8.3)
[2020-03-08] MEDS: FLUNISOLIDE 25 MCG/SPRAY 25 ML NASAL SPRY EN SCH ×2 (08:51→21:00)
[2020-03-08] MEDS: FLUTICASONE PROPIONATE 50MCG/SPRAY 16 GM BOTTLE EN SCH ×2 (08:51→21:36)
[2020-03-08] MEDS: FAMOTIDINE 20MG TAB 20 MG TAB PO SCH ×2 (08:52→21:32)
[2020-03-08] MEDS: POLYETHYLENE GLYCOL 3350 17 GM POWD.PACK PO SCH (08:52)
[2020-03-08] MEDS: ASCORBIC ACID 500 MG TAB PO SCH (08:52)
[2020-03-08] MEDS: ZINC SULFATE 220 CAPSULE PO SCH (08:52)
[2020-03-08] MEDS: BENZONATATE 100 MG CAPSULE PO SCH ×2 (08:52→21:32)
[2020-03-08] MEDS: DEXAMETHASONE SOD PHOSPHATE 4 MG/ML 1ML VIAL IVP SCH ×2 (08:52→21:34)
[2020-03-08] MEDS: ENOXAPARIN SODIUM 60 MG/0.6 ML SQ SCH ×2 (08:53→21:33)
[2020-03-08] MEDS: PAROXETINE HCL 20 MG TABLET PO SCH (11:53)
[2020-03-08] MEDS ORDERED: ALPRAZOLAM 0.5 MG TABLET PO PRN (13:45)
[2020-03-08] MEDS: INSULIN GLARGINE 100 UNITS/ML 10 ML VIAL SQ SCH (21:50)
[2020-03-09] VITALS (20 sets, daily range): BP systolic 124–201; BP diastolic 64–91
[2020-03-09 05:34] LABS: BASOPHILS % (AUTO) 0.4 % (0.0-5.0); EOSINOPHILS % (AUTO) 0.3 % (0.0-8.0); HEMATOCRIT 44.7 % (36-48); LYMPHOCYTES % (AUTO) 13.6 % (21.0-51.0); MEAN CORPUSCULAR HGB CONC 33.1 g/dL (32.0-36.0); MEAN CORPUSCULAR VOLUME 90.5 fL (79-99); MONOCYTES % (AUTO) 3.2 % (3.0-13.0); PLATELET COUNT (AUTO) 100 K/uL (130-400); RED BLOOD CELL COUNT(AUTO) 4.94 MIL/uL (4.00-5.50); RED CELL DISTRIBUTION WIDTH 13.2 % (11.0-15.5); WHITE BLOOD COUNT (AUTO) 9.9 K/uL (4.8-10.8)
[2020-03-09 05:46] LABS: CREATININE 0.6 mg/dL (0.5-1.5); CRP QUANTITATIVE 11.9 mg/L (0.00-9.0); POTASSIUM 3.8 mmol/L (3.5-5.1)
[2020-03-09] MEDS: CLOTRIMAZOLE 10 MG TROCHE MM SCH ×4 (05:58→21:15)
[2020-03-09] MEDS: ALBUTEROL INHALER 90MCG/INH IH SCH ×4 (06:01→21:18)
[2020-03-09] MEDS: INSULIN HUMULIN R 100 UNIT/ML 3ML SQ SCH ×7 (06:03→21:00)
[2020-03-09] MEDS: ZINC SULFATE 220 CAPSULE PO SCH (08:46)
[2020-03-09] MEDS: ENOXAPARIN SODIUM 60 MG/0.6 ML SQ SCH (08:46)
[2020-03-09] MEDS: BENZONATATE 100 MG CAPSULE PO SCH ×2 (08:46→21:15)
[2020-03-09] MEDS: DEXAMETHASONE SOD PHOSPHATE 4 MG/ML 1ML VIAL IVP SCH ×2 (08:47→21:15)
[2020-03-09] MEDS: FLUTICASONE PROPIONATE 50MCG/SPRAY 16 GM BOTTLE EN SCH ×2 (08:47→21:17)
[2020-03-09] MEDS: FAMOTIDINE 20MG TAB 20 MG TAB PO SCH ×2 (08:47→21:15)
[2020-03-09] MEDS: FLUNISOLIDE 25 MCG/SPRAY 25 ML NASAL SPRY EN SCH ×2 (08:47→21:00)
[2020-03-09] MEDS: PAROXETINE HCL 20 MG TABLET PO SCH (08:47)
[2020-03-09] MEDS: ASCORBIC ACID 500 MG TAB PO SCH (08:47)
[2020-03-09] MEDS: POLYETHYLENE GLYCOL 3350 17 GM POWD.PACK PO SCH (08:47)
[2020-03-09] MEDS ORDERED: MORPHINE SULFATE 10 MG/ML 1ML SYG IM ONE (11:15)
[2020-03-09] MEDS: FENTANYL CITRATE PF 50 MCG/1 ML 2ML VIAL IVP SCH ×2 (11:30→14:02)
[2020-03-09] MEDS ORDERED: MIDAZOLAM HCL 1 MG/ML 2ML VIAL IV SCH (11:30)
[2020-03-09] MEDS ORDERED: LIDOCAINE HCL 1% 20 ML VIAL INJ SCH (11:30)
[2020-03-09 12:54] LABS: INR 1.03 (0.85-1.15); PROTHROMBIN TIME 11.2 SEC (9.6-11.6)
[2020-03-09 12:55] LABS: PARTIAL THROMBOPLASTIN TIME 25.1 SEC (26.3-35.5)
[2020-03-09] MEDS ORDERED: HYDROMORPHONE HCL 0.5 MG/0.5 ML ML IVP PRN (13:51)
[2020-03-09] MEDS: HYDROMORPHONE HCL 0.5 MG/0.5 ML ML IVP PRN ×2 (17:56→21:14)
[2020-03-09] MEDS: INSULIN GLARGINE 100 UNITS/ML 10 ML VIAL SQ SCH (21:49)
[2020-03-10] VITALS (84 sets, daily range): BP systolic 33–191; BP diastolic 20–101
[2020-03-10] MEDS: HYDROMORPHONE HCL 0.5 MG/0.5 ML ML IVP PRN ×3 (01:56→08:03)
[2020-03-10] MEDS: ALBUTEROL INHALER 90MCG/INH IH SCH ×3 (06:00→18:00)
[2020-03-10] MEDS: CLOTRIMAZOLE 10 MG TROCHE MM SCH ×3 (06:00→13:34)
[2020-03-10] MEDS: INSULIN HUMULIN R 100 UNIT/ML 3ML SQ SCH ×7 (07:03→21:26)
[2020-03-10 07:11] LABS: BASOPHILS % (AUTO) 0.4 % (0.0-5.0); EOSINOPHILS % (AUTO) 0.1 % (0.0-8.0); HEMATOCRIT 47.3 % (36-48); LYMPHOCYTES % (AUTO) 9.6 % (21.0-51.0); MEAN CORPUSCULAR HEMOGLOBIN 29.6 pg (27.0-33.0); MEAN CORPUSCULAR HGB CONC 32.3 g/dL (32.0-36.0); MEAN CORPUSCULAR VOLUME 91.5 fL (79-99); MONOCYTES % (AUTO) 3.9 % (3.0-13.0); NEUTROPHILS % (AUTO) 81.9 % (40.0-77.0); NUCLEATED RED BLOOD CELLS 0.1 % (0.0-0.19); PLATELET COUNT (AUTO) 196 K/uL (130-400); RED BLOOD CELL COUNT(AUTO) 5.17 MIL/uL (4.00-5.50); RED CELL DISTRIBUTION WIDTH 13.7 % (11.0-15.5)
[2020-03-10 07:25] LABS: ALBUMIN 3.1 g/dL (3.5-5.0); BILIRUBIN,TOTAL 0.6 mg/dL (0.2-1.0); CREATININE 0.7 mg/dL (0.5-1.5); POTASSIUM 4.3 mmol/L (3.5-5.1); TOTAL PROTEIN, SERUM 7.6 g/dL (6.0-8.3)
[2020-03-10] MEDS ORDERED: FUROSEMIDE 10 MG/ML 4ML VIAL IV SCH (07:45)
[2020-03-10] MEDS ORDERED: PHARMACY COMMUNICATION MISC SCH ×3 (07:45→12:30)
[2020-03-10 08:12] LABS: ABG BASE EXCESS 0.7 mmol/L (-2.0-3.0); ABG HCO3 25.3 mmol/L (21.0-28.0); ABG OXYGEN SATURATION 74.2 % (95.0-99.0); ABG PCO2 41 mmHg (32-45)
[2020-03-10] MEDS ORDERED: FENTANYL CITRATE PF 0.05 MG/ML 1,000 MCG in SODIUM CHLORIDE 0.9% 100 ML IVPB SCH (08:15)
[2020-03-10] MEDS ORDERED: MIDAZOLAM 50MG-0.9% NS 50ML 50 ML BAG IV SCH (08:15)
[2020-03-10] MEDS ORDERED: NOREPINEPHRINE 4MG/NS 250ML 250 ML IV ONE (08:23)
[2020-03-10] MEDS ORDERED: FENTANYL 2500MCG+NS 250ML 250 ML IV ONE (08:38)
[2020-03-10] MEDS: PAROXETINE HCL 20 MG TABLET PO SCH (09:00)
[2020-03-10] MEDS: ASCORBIC ACID 500 MG TAB PO SCH (09:00)
[2020-03-10] MEDS: FLUNISOLIDE 25 MCG/SPRAY 25 ML NASAL SPRY EN SCH ×2 (09:00→20:39)
[2020-03-10] MEDS: FLUTICASONE PROPIONATE 50MCG/SPRAY 16 GM BOTTLE EN SCH ×2 (09:00→20:39)
[2020-03-10] MEDS ORDERED: FAMOTIDINE/PF 20 MG/2 ML VIAL IV SCH (09:00)
[2020-03-10] MEDS: BENZONATATE 100 MG CAPSULE PO SCH ×2 (09:00→20:40)
[2020-03-10] MEDS: ZINC SULFATE 220 CAPSULE PO SCH (09:00)
[2020-03-10] MEDS: FAMOTIDINE 20MG TAB 20 MG TAB PO SCH (09:00)
[2020-03-10] MEDS: POLYETHYLENE GLYCOL 3350 17 GM POWD.PACK PO SCH (09:00)
[2020-03-10] MEDS ORDERED: PROPOFOL 1000 MG/100 ML 100 ML IV ONE (09:08)
[2020-03-10] MEDS ORDERED: PROPOFOL 1000 MG/100 ML 100 ML IV SCH (09:15)
[2020-03-10] MEDS ORDERED: PROPOFOL 1000 MG/100 ML 100 ML IV PRN (10:00)
[2020-03-10] MEDS: DEXAMETHASONE SOD PHOSPHATE 4 MG/ML 1ML VIAL IVP SCH ×2 (10:09→21:25)
[2020-03-10] MEDS: FENTANYL 2500MCG+NS 250ML 250 ML IV SCH (10:13)
[2020-03-10] MEDS: MIDAZOLAM 100MG-0.9% NS 100ML 100 ML IV SCH (10:14)
[2020-03-10] MEDS ORDERED: VANCOMYCIN 1GM+NS 250ML 250 ML IV SCH (10:15)
[2020-03-10] MEDS ORDERED: NOREPINEPHRINE 4MG/NS 250ML 250 ML IV SCH (10:15)
[2020-03-10 10:31] LABS: ABG BASE EXCESS -3.7 mmol/L (-2.0-3.0); ABG HCO3 24.1 mmol/L (21.0-28.0); ABG OXYGEN SATURATION 95.5 % (95.0-99.0); ABG PCO2 54 mmHg (32-45)
[2020-03-10] MEDS ORDERED: VASOPRESSIN 20 UNITS in SODIUM CHLORIDE 0.9% 99 ML IV PRN (11:45)
[2020-03-10] MEDS ORDERED: PROPOFOL 1000 MG/100 ML IV PRN (12:45)
[2020-03-10] MEDS ORDERED: FENTANYL CITRATE PF 50 MCG/1 ML 2ML VIAL IVP SCH (13:00)
[2020-03-10] MEDS ORDERED: VECURONIUM BROMIDE 10 MG ML IV ONE (13:02)
[2020-03-10] MEDS ORDERED: FENTANYL CITRATE PF 50 MCG/1 ML 2ML VIAL ONE (13:05)
[2020-03-10 13:52] LABS: ABG BASE EXCESS -3.4 mmol/L (-2.0-3.0); ABG HCO3 24.1 mmol/L (21.0-28.0); ABG OXYGEN SATURATION 95.1 % (95.0-99.0); ABG PCO2 53 mmHg (32-45)
[2020-03-10] MEDS: CEFEPIME HCL 2 GM VIAL IVP SCH ×2 (14:02→18:13)
[2020-03-10 17:58] LABS: PROTHROMBIN TIME 10.9 SEC (9.6-11.6)
[2020-03-10] MEDS: PROPOFOL 1000 MG/100 ML 100 ML IV SCH (18:15)
[2020-03-10] MEDS: VECURONIUM BROMIDE 50 MG in SODIUM CHLORIDE 0.9% 50 ML IV SCH (21:07)
[2020-03-10] MEDS: VANCOMYCIN 1GM+NS 250ML 250 ML IV SCH (21:25)
[2020-03-10] MEDS: FAMOTIDINE/PF 20 MG/2 ML VIAL IV SCH (21:25)
[2020-03-10] MEDS: INSULIN GLARGINE 100 UNITS/ML 10 ML VIAL SQ SCH (21:26)
[2020-03-11] VITALS (96 sets, daily range): BP systolic 50–148; BP diastolic 29–72
[2020-03-11] MEDS: PROPOFOL 1000 MG/100 ML 100 ML IV SCH ×3 (01:09→20:18)
[2020-03-11] MEDS: CEFEPIME HCL 2 GM VIAL IVP SCH ×3 (02:43→17:52)
[2020-03-11] MEDS: FENTANYL 2500MCG+NS 250ML 250 ML IV SCH (03:24)
[2020-03-11] MEDS: MIDAZOLAM 100MG-0.9% NS 100ML 100 ML IV SCH (03:25)
[2020-03-11] MEDS: ALBUTEROL INHALER 90MCG/INH IH SCH ×5 (05:13→23:58)
[2020-03-11] MEDS: CLOTRIMAZOLE 10 MG TROCHE MM SCH ×5 (05:13→23:58)
[2020-03-11 05:17] LABS: BASOPHILS % (AUTO) 0.3 % (0.0-5.0); EOSINOPHILS % (AUTO) 0.1 % (0.0-8.0); HEMATOCRIT 42.5 % (36-48); LYMPHOCYTES % (AUTO) 9.3 % (21.0-51.0); MEAN CORPUSCULAR HEMOGLOBIN 30.2 pg (27.0-33.0); MEAN CORPUSCULAR HGB CONC 31.5 g/dL (32.0-36.0); MEAN CORPUSCULAR VOLUME 95.7 fL (79-99); NEUTROPHILS % (AUTO) 84.9 % (40.0-77.0); PLATELET COUNT (AUTO) 90 K/uL (130-400); RED BLOOD CELL COUNT(AUTO) 4.44 MIL/uL (4.00-5.50); RED CELL DISTRIBUTION WIDTH 13.6 % (11.0-15.5); WHITE BLOOD COUNT (AUTO) 11.2 K/uL (4.8-10.8)
[2020-03-11] MEDS: VECURONIUM BROMIDE 50 MG in SODIUM CHLORIDE 0.9% 50 ML IV SCH ×3 (05:25→20:18)
[2020-03-11 05:43] LABS: ALBUMIN 2.5 g/dL (3.5-5.0); BILIRUBIN,TOTAL 0.3 mg/dL (0.2-1.0); CREATININE 0.7 mg/dL (0.5-1.5); POTASSIUM 4.4 mmol/L (3.5-5.1)
[2020-03-11 06:53] LABS: ABG BASE EXCESS -6.3 mmol/L (-2.0-3.0); ABG OXYGEN SATURATION 95.9 % (95.0-99.0); ABG PCO2 48 mmHg (32-45)
[2020-03-11] MEDS: INSULIN HUMULIN R 100 UNIT/ML 3ML SQ SCH ×7 (08:13→22:05)
[2020-03-11] MEDS: ZINC SULFATE 220 CAPSULE PO SCH (08:46)
[2020-03-11] MEDS: POLYETHYLENE GLYCOL 3350 17 GM POWD.PACK PO SCH (08:46)
[2020-03-11] MEDS: DEXAMETHASONE SOD PHOSPHATE 4 MG/ML 1ML VIAL IVP SCH ×2 (08:46→20:17)
[2020-03-11] MEDS: FAMOTIDINE/PF 20 MG/2 ML VIAL IV SCH ×2 (08:47→20:17)
[2020-03-11] MEDS: BENZONATATE 100 MG CAPSULE PO SCH ×2 (08:47→21:00)
[2020-03-11] MEDS: ASCORBIC ACID 500 MG TAB PO SCH (08:47)
[2020-03-11] MEDS: VANCOMYCIN 1GM+NS 250ML 250 ML IV SCH ×2 (08:47→20:18)
[2020-03-11] MEDS: PAROXETINE HCL 20 MG TABLET PO SCH (08:47)
[2020-03-11] MEDS: FLUNISOLIDE 25 MCG/SPRAY 25 ML NASAL SPRY EN SCH ×2 (08:48→21:00)
[2020-03-11] MEDS: FLUTICASONE PROPIONATE 50MCG/SPRAY 16 GM BOTTLE EN SCH ×2 (08:48→21:00)
[2020-03-11] MEDS: INSULIN GLARGINE 100 UNITS/ML 10 ML VIAL SQ SCH (22:02)
[2020-03-12] VITALS (87 sets, daily range): BP systolic 108–159; BP diastolic 53–81
[2020-03-12] MEDS: CEFEPIME HCL 2 GM VIAL IVP SCH ×3 (02:05→17:48)
[2020-03-12] MEDS: MIDAZOLAM 100MG-0.9% NS 100ML 100 ML IV SCH ×2 (02:06→23:29)
[2020-03-12] MEDS: PROPOFOL 1000 MG/100 ML 100 ML IV SCH ×4 (04:07→23:30)
[2020-03-12] MEDS: VECURONIUM BROMIDE 50 MG in SODIUM CHLORIDE 0.9% 50 ML IV SCH ×2 (05:40→20:01)
[2020-03-12] MEDS: FENTANYL 2500MCG+NS 250ML 250 ML IV SCH (05:44)
[2020-03-12] MEDS: CLOTRIMAZOLE 10 MG TROCHE MM SCH ×2 (05:47→12:00)
[2020-03-12] MEDS: ALBUTEROL INHALER 90MCG/INH IH SCH ×4 (05:47→23:14)
[2020-03-12 06:29] LABS: BASOPHILS % (AUTO) 0.4 % (0.0-5.0); HEMATOCRIT 39.3 % (36-48); LYMPHOCYTES % (AUTO) 7.4 % (21.0-51.0); MEAN CORPUSCULAR HEMOGLOBIN 30.3 pg (27.0-33.0); MEAN CORPUSCULAR HGB CONC 31.3 g/dL (32.0-36.0); MEAN CORPUSCULAR VOLUME 96.8 fL (79-99); MONOCYTES % (AUTO) 5.2 % (3.0-13.0); NEUTROPHILS % (AUTO) 83.6 % (40.0-77.0); NUCLEATED RED BLOOD CELLS 0.7 % (0.0-0.19); PLATELET COUNT (AUTO) 81 K/uL (130-400); RED BLOOD CELL COUNT(AUTO) 4.06 MIL/uL (4.00-5.50); RED CELL DISTRIBUTION WIDTH 13.2 % (11.0-15.5); WHITE BLOOD COUNT (AUTO) 11.8 K/uL (4.8-10.8)
[2020-03-12 06:46] LABS: ALBUMIN 2.3 g/dL (3.5-5.0); BILIRUBIN,TOTAL 0.3 mg/dL (0.2-1.0); CREATININE 0.8 mg/dL (0.5-1.5); CRP QUANTITATIVE 54.5 mg/L (0.00-9.0); POTASSIUM 4.9 mmol/L (3.5-5.1); TOTAL PROTEIN, SERUM 6.2 g/dL (6.0-8.3)
[2020-03-12] MEDS: INSULIN HUMULIN R 100 UNIT/ML 3ML SQ SCH ×7 (07:30→21:00)
[2020-03-12] MEDS: ZINC SULFATE 220 CAPSULE PO SCH (08:33)
[2020-03-12] MEDS: BENZONATATE 100 MG CAPSULE PO SCH ×2 (08:33→20:00)
[2020-03-12] MEDS: PAROXETINE HCL 20 MG TABLET PO SCH (08:33)
[2020-03-12] MEDS: FAMOTIDINE/PF 20 MG/2 ML VIAL IV SCH ×2 (08:33→20:00)
[2020-03-12] MEDS: ASCORBIC ACID 500 MG TAB PO SCH (08:33)
[2020-03-12] MEDS: POLYETHYLENE GLYCOL 3350 17 GM POWD.PACK PO SCH (08:33)
[2020-03-12] MEDS: DEXAMETHASONE SOD PHOSPHATE 4 MG/ML 1ML VIAL IVP SCH ×2 (08:33→20:00)
[2020-03-12] MEDS: FLUTICASONE PROPIONATE 50MCG/SPRAY 16 GM BOTTLE EN SCH ×2 (08:33→20:00)
[2020-03-12] MEDS: FLUNISOLIDE 25 MCG/SPRAY 25 ML NASAL SPRY EN SCH ×2 (08:34→20:00)
[2020-03-12] MEDS: VANCOMYCIN 1GM+NS 250ML 250 ML IV SCH ×2 (10:18→20:00)
[2020-03-12] MEDS: INSULIN GLARGINE 100 UNITS/ML 10 ML VIAL SQ SCH (21:16)
[2020-03-13] VITALS (72 sets, daily range): BP systolic 107–154; BP diastolic 50–110
[2020-03-13] MEDS: CEFEPIME HCL 2 GM VIAL IVP SCH ×3 (02:02→17:42)
[2020-03-13] MEDS: PROPOFOL 1000 MG/100 ML 100 ML IV SCH ×3 (05:09→17:55)
[2020-03-13] MEDS: ALBUTEROL INHALER 90MCG/INH IH SCH ×4 (05:10→23:45)
[2020-03-13 06:04] LABS: BASOPHILS % (AUTO) 0.3 % (0.0-5.0); LYMPHOCYTES % (AUTO) 8.7 % (21.0-51.0); MEAN CORPUSCULAR HEMOGLOBIN 30.1 pg (27.0-33.0); MEAN CORPUSCULAR HGB CONC 31.3 g/dL (32.0-36.0); MONOCYTES % (AUTO) 4.1 % (3.0-13.0); NEUTROPHILS % (AUTO) 82.2 % (40.0-77.0); NUCLEATED RED BLOOD CELLS 0.3 % (0.0-0.19); PLATELET COUNT (AUTO) 83 K/uL (130-400); RED BLOOD CELL COUNT(AUTO) 3.96 MIL/uL (4.00-5.50); RED CELL DISTRIBUTION WIDTH 13.4 % (11.0-15.5)
[2020-03-13 06:11] LABS: ALBUMIN 2.4 g/dL (3.5-5.0); BILIRUBIN,TOTAL 0.2 mg/dL (0.2-1.0); CREATININE 0.7 mg/dL (0.5-1.5); CRP QUANTITATIVE 22.9 mg/L (0.00-9.0); POTASSIUM 4.5 mmol/L (3.5-5.1); TOTAL PROTEIN, SERUM 6.2 g/dL (6.0-8.3)
[2020-03-13 06:31] LABS: ABG BASE EXCESS -0.6 mmol/L (-2.0-3.0); ABG HCO3 27.7 mmol/L (21.0-28.0); ABG OXYGEN SATURATION 91.1 % (95.0-99.0); ABG PCO2 61 mmHg (32-45)
[2020-03-13] MEDS: VECURONIUM BROMIDE 50 MG in SODIUM CHLORIDE 0.9% 50 ML IV SCH (08:11)
[2020-03-13] MEDS: POLYETHYLENE GLYCOL 3350 17 GM POWD.PACK PO SCH (08:48)
[2020-03-13] MEDS: FAMOTIDINE/PF 20 MG/2 ML VIAL IV SCH ×2 (08:48→21:04)
[2020-03-13] MEDS: ZINC SULFATE 220 CAPSULE PO SCH (08:48)
[2020-03-13] MEDS: PAROXETINE HCL 20 MG TABLET PO SCH (08:48)
[2020-03-13] MEDS: ASCORBIC ACID 500 MG TAB PO SCH (08:49)
[2020-03-13] MEDS: BENZONATATE 100 MG CAPSULE PO SCH ×2 (08:49→20:24)
[2020-03-13] MEDS: FENTANYL 2500MCG+NS 250ML 250 ML IV SCH (08:49)
[2020-03-13] MEDS: VANCOMYCIN 1GM+NS 250ML 250 ML IV SCH (08:50)
[2020-03-13] MEDS: DEXAMETHASONE SOD PHOSPHATE 4 MG/ML 1ML VIAL IVP SCH (08:50)
[2020-03-13] MEDS: INSULIN HUMULIN R 100 UNIT/ML 3ML SQ SCH ×7 (08:53→20:51)
[2020-03-13] MEDS: FLUTICASONE PROPIONATE 50MCG/SPRAY 16 GM BOTTLE EN SCH ×2 (08:54→20:23)
[2020-03-13] MEDS: FLUNISOLIDE 25 MCG/SPRAY 25 ML NASAL SPRY EN SCH ×2 (08:55→20:23)
[2020-03-13] MEDS: DEXMEDETOMIDINE HCL 400 MCG in SODIUM CHLORIDE 0.9% 100 ML IV SCH (16:28)
[2020-03-13] MEDS: INSULIN GLARGINE 100 UNITS/ML 10 ML VIAL SQ SCH (20:57)
[2020-03-14] VITALS (23 sets, daily range): BP systolic 97–145; BP diastolic 46–72
[2020-03-14] MEDS: DEXMEDETOMIDINE HCL 400 MCG in SODIUM CHLORIDE 0.9% 100 ML IV SCH ×2 (00:29→07:41)
[2020-03-14] MEDS: CEFEPIME HCL 2 GM VIAL IVP SCH ×3 (03:02→18:06)
[2020-03-14 05:00] LABS: BASOPHILS % (AUTO) 0.3 % (0.0-5.0); EOSINOPHILS % (AUTO) 0.7 % (0.0-8.0); HEMATOCRIT 37.5 % (36-48); LYMPHOCYTES % (AUTO) 18.3 % (21.0-51.0); MEAN CORPUSCULAR HEMOGLOBIN 30.4 pg (27.0-33.0); MEAN CORPUSCULAR HGB CONC 31.7 g/dL (32.0-36.0); MEAN CORPUSCULAR VOLUME 95.7 fL (79-99); MONOCYTES % (AUTO) 5.3 % (3.0-13.0); NEUTROPHILS % (AUTO) 70.6 % (40.0-77.0); NUCLEATED RED BLOOD CELLS 0.7 % (0.0-0.19); PLATELET COUNT (AUTO) 77 K/uL (130-400); RED BLOOD CELL COUNT(AUTO) 3.92 MIL/uL (4.00-5.50); RED CELL DISTRIBUTION WIDTH 13.7 % (11.0-15.5); WHITE BLOOD COUNT (AUTO) 5.9 K/uL (4.8-10.8)
[2020-03-14 05:27] LABS: ALBUMIN 2.2 g/dL (3.5-5.0); BILIRUBIN,TOTAL 0.2 mg/dL (0.2-1.0); CREATININE 0.6 mg/dL (0.5-1.5); CRP QUANTITATIVE 9.7 mg/L (0.00-9.0); POTASSIUM 4.4 mmol/L (3.5-5.1); TOTAL PROTEIN, SERUM 5.7 g/dL (6.0-8.3)
[2020-03-14] MEDS: ALBUTEROL INHALER 90MCG/INH IH SCH ×4 (05:57→23:32)
[2020-03-14] MEDS: PROPOFOL 1000 MG/100 ML 100 ML IV SCH ×4 (06:26→21:08)
[2020-03-14 07:26] LABS: ABG BASE EXCESS 2.8 mmol/L (-2.0-3.0); ABG HCO3 31.4 mmol/L (21.0-28.0); ABG OXYGEN SATURATION 90.3 % (95.0-99.0); ABG PCO2 66 mmHg (32-45)
[2020-03-14] MEDS: ASCORBIC ACID 500 MG TAB PO SCH (08:49)
[2020-03-14] MEDS: PAROXETINE HCL 20 MG TABLET PO SCH (08:49)
[2020-03-14] MEDS: BENZONATATE 100 MG CAPSULE PO SCH ×2 (08:49→21:00)
[2020-03-14] MEDS: ZINC SULFATE 220 CAPSULE PO SCH (08:49)
[2020-03-14] MEDS: FAMOTIDINE/PF 20 MG/2 ML VIAL IV SCH ×2 (08:50→21:05)
[2020-03-14] MEDS: POLYETHYLENE GLYCOL 3350 17 GM POWD.PACK PO SCH (08:50)
[2020-03-14] MEDS: DEXAMETHASONE SOD PHOSPHATE 4 MG/ML 1ML VIAL IVP SCH (08:50)
[2020-03-14] MEDS: FLUTICASONE PROPIONATE 50MCG/SPRAY 16 GM BOTTLE EN SCH ×2 (09:00→21:00)
[2020-03-14] MEDS: FLUNISOLIDE 25 MCG/SPRAY 25 ML NASAL SPRY EN SCH ×2 (09:01→21:00)
[2020-03-14] MEDS: TRYPSIN/BALSAM PERU/CASTOR OIL OINT 60GM TUBE TP SCH (09:02)
[2020-03-14] MEDS: INSULIN HUMULIN R 100 UNIT/ML 3ML SQ SCH ×7 (11:30→21:07)
[2020-03-14] MEDS: SENNOSIDES 8.6 MG TABLET GT SCH (14:30)
[2020-03-14] MEDS ORDERED: INSULIN GLARGINE 100 UNITS/ML 10 ML VIAL SQ SCH (21:00)
[2020-03-15] VITALS (24 sets, daily range): BP systolic 106–149; BP diastolic 46–86
[2020-03-15] MEDS: CEFEPIME HCL 2 GM VIAL IVP SCH ×3 (01:25→18:00)
[2020-03-15] MEDS: PROPOFOL 1000 MG/100 ML 100 ML IV SCH ×7 (01:28→22:02)
[2020-03-15] MEDS: FENTANYL 2500MCG+NS 250ML 250 ML IV SCH (02:40)
[2020-03-15 05:19] LABS: ABG BASE EXCESS -1.9 mmol/L (-2.0-3.0); ABG HCO3 27.4 mmol/L (21.0-28.0); ABG OXYGEN SATURATION 96.1 % (95.0-99.0); ABG PCO2 68 mmHg (32-45)
[2020-03-15] MEDS: ALBUTEROL INHALER 90MCG/INH IH SCH ×3 (06:00→17:42)
[2020-03-15 06:57] LABS: BASOPHILS % (AUTO) 0.3 % (0.0-5.0); EOSINOPHILS % (AUTO) 0.3 % (0.0-8.0); HEMATOCRIT 39.5 % (36-48); LYMPHOCYTES % (AUTO) 13.5 % (21.0-51.0); MEAN CORPUSCULAR HGB CONC 31.6 g/dL (32.0-36.0); MONOCYTES % (AUTO) 5.3 % (3.0-13.0); NEUTROPHILS % (AUTO) 76.4 % (40.0-77.0); NUCLEATED RED BLOOD CELLS 0.8 % (0.0-0.19); PLATELET COUNT (AUTO) 75 K/uL (130-400); RED BLOOD CELL COUNT(AUTO) 4.16 MIL/uL (4.00-5.50); RED CELL DISTRIBUTION WIDTH 13.5 % (11.0-15.5); WHITE BLOOD COUNT (AUTO) 6.7 K/uL (4.8-10.8)
[2020-03-15] MEDS: INSULIN HUMULIN R 100 UNIT/ML 3ML SQ SCH ×6 (07:06→22:04)
[2020-03-15 07:08] LABS: ALBUMIN 2.3 g/dL (3.5-5.0); BILIRUBIN,TOTAL 0.2 mg/dL (0.2-1.0); CREATININE 0.5 mg/dL (0.5-1.5); CRP QUANTITATIVE 80.9 mg/L (0.00-9.0); POTASSIUM 4.8 mmol/L (3.5-5.1); TOTAL PROTEIN, SERUM 5.9 g/dL (6.0-8.3)
[2020-03-15] MEDS: FAMOTIDINE/PF 20 MG/2 ML VIAL IV SCH ×2 (08:59→22:01)
[2020-03-15] MEDS: DOCUSATE NA 100MG/10ML UDCUP GT SCH (08:59)
[2020-03-15] MEDS: ASCORBIC ACID 500 MG TAB PO SCH (09:00)
[2020-03-15] MEDS: SENNOSIDES 8.6 MG TABLET GT SCH (09:00)
[2020-03-15] MEDS: BENZONATATE 100 MG CAPSULE PO SCH ×2 (09:00→21:00)
[2020-03-15] MEDS: ZINC SULFATE 220 CAPSULE PO SCH (09:00)
[2020-03-15] MEDS: PAROXETINE HCL 20 MG TABLET PO SCH (09:00)
[2020-03-15] MEDS: DEXAMETHASONE SOD PHOSPHATE 4 MG/ML 1ML VIAL IVP SCH (09:00)
[2020-03-15] MEDS: POLYETHYLENE GLYCOL 3350 17 GM POWD.PACK PO SCH (09:01)
[2020-03-15] MEDS: FLUTICASONE PROPIONATE 50MCG/SPRAY 16 GM BOTTLE EN SCH ×2 (09:15→21:00)
[2020-03-15] MEDS: TRYPSIN/BALSAM PERU/CASTOR OIL OINT 60GM TUBE TP SCH (09:17)
[2020-03-15] MEDS: FLUNISOLIDE 25 MCG/SPRAY 25 ML NASAL SPRY EN SCH ×2 (09:17→21:00)
[2020-03-15] MEDS ORDERED: INSULIN HUMULIN R 100 UNIT/ML 3ML SQ SCH (11:30)
[2020-03-15] MEDS ORDERED: FENTANYL 2500MCG+NS 250ML 250 ML IV ONE (16:24)
[2020-03-15] MEDS: VECURONIUM BROMIDE 10 MG ML IV PRN (18:29)
[2020-03-15] MEDS ORDERED: INSULIN GLARGINE 100 UNITS/ML 10 ML VIAL SQ SCH ×2 (21:00)
[2020-03-16] VITALS (21 sets, daily range): BP systolic 121–168; BP diastolic 54–103
[2020-03-16] MEDS: CEFEPIME HCL 2 GM VIAL IVP SCH ×3 (02:00→17:30)
[2020-03-16] MEDS: PROPOFOL 1000 MG/100 ML 100 ML IV SCH ×5 (04:17→17:22)
[2020-03-16 05:06] LABS: ABG BASE EXCESS -0.1 mmol/L (-2.0-3.0); ABG HCO3 31.4 mmol/L (21.0-28.0); ABG OXYGEN SATURATION 86.4 % (95.0-99.0); ABG PCO2 88 mmHg (32-45)
[2020-03-16 05:54] LABS: BASOPHILS % (AUTO) 0.8 % (0.0-5.0); EOSINOPHILS % (AUTO) 0.4 % (0.0-8.0); HEMATOCRIT 40.2 % (36-48); LYMPHOCYTES % (AUTO) 13.1 % (21.0-51.0); MEAN CORPUSCULAR HEMOGLOBIN 30.2 pg (27.0-33.0); MEAN CORPUSCULAR HGB CONC 30.8 g/dL (32.0-36.0); MEAN CORPUSCULAR VOLUME 97.8 fL (79-99); NEUTROPHILS % (AUTO) 74.2 % (40.0-77.0); NUCLEATED RED BLOOD CELLS 1.3 % (0.0-0.19); PLATELET COUNT (AUTO) 79 K/uL (130-400); RED BLOOD CELL COUNT(AUTO) 4.11 MIL/uL (4.00-5.50); RED CELL DISTRIBUTION WIDTH 13.4 % (11.0-15.5); WHITE BLOOD COUNT (AUTO) 7.8 K/uL (4.8-10.8)
[2020-03-16] MEDS: ALBUTEROL INHALER 90MCG/INH IH SCH ×5 (06:00→23:46)
[2020-03-16] MEDS: INSULIN HUMULIN R 100 UNIT/ML 3ML SQ SCH ×5 (06:19→21:16)
[2020-03-16] MEDS: FENTANYL 2500MCG+NS 250ML 250 ML IV SCH ×2 (06:26→18:52)
[2020-03-16 06:36] LABS: CREATININE 0.5 mg/dL (0.5-1.5); CRP QUANTITATIVE 64.6 mg/L (0.00-9.0); POTASSIUM 5.2 mmol/L (3.5-5.1)
[2020-03-16] MEDS: FLUTICASONE PROPIONATE 50MCG/SPRAY 16 GM BOTTLE EN SCH ×2 (08:20→21:00)
[2020-03-16] MEDS: FLUNISOLIDE 25 MCG/SPRAY 25 ML NASAL SPRY EN SCH ×2 (08:20→21:00)
[2020-03-16] MEDS: FAMOTIDINE/PF 20 MG/2 ML VIAL IV SCH ×2 (08:26→21:16)
[2020-03-16] MEDS: BENZONATATE 100 MG CAPSULE PO SCH ×2 (08:26→21:00)
[2020-03-16] MEDS: DEXAMETHASONE SOD PHOSPHATE 4 MG/ML 1ML VIAL IVP SCH (08:26)
[2020-03-16] MEDS: PAROXETINE HCL 20 MG TABLET PO SCH (08:26)
[2020-03-16] MEDS: SENNOSIDES 8.6 MG TABLET GT SCH (08:26)
[2020-03-16] MEDS: POLYETHYLENE GLYCOL 3350 17 GM POWD.PACK PO SCH (08:26)
[2020-03-16] MEDS: DOCUSATE NA 100MG/10ML UDCUP GT SCH (08:27)
[2020-03-16] MEDS: TRYPSIN/BALSAM PERU/CASTOR OIL OINT 60GM TUBE TP SCH (08:27)
[2020-03-16 08:51] LABS: ABG BASE EXCESS 0.4 mmol/L (-2.0-3.0); ABG HCO3 31.1 mmol/L (21.0-28.0); ABG PCO2 82 mmHg (32-45)
[2020-03-16] MEDS: VECURONIUM BROMIDE 10 MG ML IV PRN ×3 (11:28→21:52)
[2020-03-16] MEDS ORDERED: SODIUM POLYSTYRENE SULFONATE 15 GM/60 ML ML PO SCH (13:30)
[2020-03-16 14:22] LABS: ABG HCO3 23.6 mmol/L (21.0-28.0); ABG OXYGEN SATURATION 99.1 % (95.0-99.0); ABG PCO2 29 mmHg (32-45)
[2020-03-16] MEDS ORDERED: DEXMEDETOMIDINE HCL 400 MCG in SODIUM CHLORIDE 0.9% 100 ML IV STA (17:45)
[2020-03-16] MEDS ORDERED: DEXMEDETOMIDINE HCL 400 MCG in SODIUM CHLORIDE 0.9% 100 ML IV SCH (18:15)
[2020-03-16] MEDS ORDERED: INSULIN GLARGINE 100 UNITS/ML 10 ML VIAL SQ SCH (21:00)
[2020-03-17] VITALS (26 sets, daily range): BP systolic 109–183; BP diastolic 54–91
[2020-03-17] MEDS: PROPOFOL 1000 MG/100 ML 100 ML IV SCH ×3 (00:37→06:36)
[2020-03-17] MEDS: VECURONIUM BROMIDE 10 MG ML IV PRN ×6 (00:59→21:45)
[2020-03-17] MEDS: CEFEPIME HCL 2 GM VIAL IVP SCH ×3 (02:16→17:30)
[2020-03-17 05:21] LABS: ABG BASE EXCESS 3.7 mmol/L (-2.0-3.0); ABG HCO3 32.6 mmol/L (21.0-28.0); ABG OXYGEN SATURATION 87.9 % (95.0-99.0); ABG PCO2 69 mmHg (32-45)
[2020-03-17 05:22] LABS: BASOPHILS % (AUTO) 0.9 % (0.0-5.0); EOSINOPHILS % (AUTO) 0.5 % (0.0-8.0); MEAN CORPUSCULAR HEMOGLOBIN 30.1 pg (27.0-33.0); MEAN CORPUSCULAR HGB CONC 31.5 g/dL (32.0-36.0); MEAN CORPUSCULAR VOLUME 95.6 fL (79-99); NEUTROPHILS % (AUTO) 72.6 % (40.0-77.0); NUCLEATED RED BLOOD CELLS 1.9 % (0.0-0.19); PLATELET COUNT (AUTO) 100 K/uL (130-400); RED BLOOD CELL COUNT(AUTO) 4.29 MIL/uL (4.00-5.50); RED CELL DISTRIBUTION WIDTH 14.3 % (11.0-15.5); WHITE BLOOD COUNT (AUTO) 9.7 K/uL (4.8-10.8)
[2020-03-17] MEDS: ALBUTEROL INHALER 90MCG/INH IH SCH ×2 (05:27→12:18)
[2020-03-17 05:39] LABS: ALBUMIN 2.2 g/dL (3.5-5.0); BILIRUBIN,TOTAL 0.3 mg/dL (0.2-1.0); CREATININE 0.6 mg/dL (0.5-1.5); CRP QUANTITATIVE 56.9 mg/L (0.00-9.0); POTASSIUM 3.7 mmol/L (3.5-5.1); TOTAL PROTEIN, SERUM 6.6 g/dL (6.0-8.3)
[2020-03-17] MEDS: INSULIN HUMULIN R 100 UNIT/ML 3ML SQ SCH ×7 (06:57→21:42)
[2020-03-17] MEDS: POLYETHYLENE GLYCOL 3350 17 GM POWD.PACK PO SCH (09:28)
[2020-03-17] MEDS: DEXAMETHASONE SOD PHOSPHATE 4 MG/ML 1ML VIAL IVP SCH (09:28)
[2020-03-17] MEDS: BENZONATATE 100 MG CAPSULE PO SCH ×2 (09:28→20:47)
[2020-03-17] MEDS: PAROXETINE HCL 20 MG TABLET PO SCH (09:28)
[2020-03-17] MEDS: FAMOTIDINE/PF 20 MG/2 ML VIAL IV SCH (09:28)
[2020-03-17] MEDS: SENNOSIDES 8.6 MG TABLET GT SCH (09:28)
[2020-03-17] MEDS: TRYPSIN/BALSAM PERU/CASTOR OIL OINT 60GM TUBE TP SCH (09:29)
[2020-03-17] MEDS: FLUNISOLIDE 25 MCG/SPRAY 25 ML NASAL SPRY EN SCH (09:29)
[2020-03-17] MEDS: DOCUSATE NA 100MG/10ML UDCUP GT SCH ×4 (09:29→20:47)
[2020-03-17] MEDS: FLUTICASONE PROPIONATE 50MCG/SPRAY 16 GM BOTTLE EN SCH (09:29)
[2020-03-17] MEDS: FENTANYL 2500MCG+NS 250ML 250 ML IV SCH (10:32)
[2020-03-17] MEDS ORDERED: COMPOUND NARC IV MISC 1 EACH IVSOLN MISC PRN (10:45)
[2020-03-17] MEDS: SODIUM CHLORIDE 0.9% IV SCH ×2 (11:23→17:46)
[2020-03-17] MEDS: KETAMINE IV SCH ×2 (11:23→17:46)
[2020-03-17] MEDS: PROPOFOL 1000 MG/100 ML IV PRN ×2 (13:57→13:58)
[2020-03-17] MEDS: PROPOFOL 1000 MG/100 ML IV SCH ×2 (16:32→19:37)
[2020-03-17] MEDS: FAMOTIDINE 20MG TAB 20 MG TAB PO SCH (20:46)
[2020-03-17] MEDS: INSULIN GLARGINE 100 UNITS/ML 10 ML VIAL SQ SCH (21:38)
[2020-03-18] VITALS (42 sets, daily range): BP systolic 78–204; BP diastolic 39–94
[2020-03-18] MEDS: SODIUM CHLORIDE 0.9% IV SCH ×6 (00:15→16:21)
[2020-03-18] MEDS: KETAMINE IV SCH ×6 (00:15→16:21)
[2020-03-18] MEDS: PROPOFOL 1000 MG/100 ML IV SCH ×5 (00:16→16:21)
[2020-03-18] MEDS: CEFEPIME HCL 2 GM VIAL IVP SCH ×3 (02:16→18:05)
[2020-03-18] MEDS: VECURONIUM BROMIDE 10 MG ML IV PRN ×2 (02:19→09:30)
[2020-03-18] MEDS: INSULIN HUMULIN R 100 UNIT/ML 3ML SQ SCH ×7 (05:13→21:34)
[2020-03-18] MEDS: DOCUSATE NA 100MG/10ML UDCUP GT SCH (05:26)
[2020-03-18] MEDS: FENTANYL 2500MCG+NS 250ML 250 ML IV SCH (05:28)
[2020-03-18 05:32] LABS: BASOPHILS % (AUTO) 0.6 % (0.0-5.0); EOSINOPHILS % (AUTO) 0.8 % (0.0-8.0); HEMATOCRIT 35.9 % (36-48); LYMPHOCYTES % (AUTO) 16.8 % (21.0-51.0); MEAN CORPUSCULAR HEMOGLOBIN 30.1 pg (27.0-33.0); MEAN CORPUSCULAR HGB CONC 30.9 g/dL (32.0-36.0); MEAN CORPUSCULAR VOLUME 97.3 fL (79-99); MONOCYTES % (AUTO) 5.2 % (3.0-13.0); NEUTROPHILS % (AUTO) 72.3 % (40.0-77.0); NUCLEATED RED BLOOD CELLS 1.7 % (0.0-0.19); PLATELET COUNT (AUTO) 80 K/uL (130-400); RED BLOOD CELL COUNT(AUTO) 3.69 MIL/uL (4.00-5.50); RED CELL DISTRIBUTION WIDTH 14.5 % (11.0-15.5); WHITE BLOOD COUNT (AUTO) 6.5 K/uL (4.8-10.8)
[2020-03-18 05:40] LABS: ABG BASE EXCESS 4.3 mmol/L (-2.0-3.0); ABG HCO3 33.5 mmol/L (21.0-28.0); ABG OXYGEN SATURATION 89.7 % (95.0-99.0); ABG PCO2 72 mmHg (32-45)
[2020-03-18 06:01] LABS: ALBUMIN 1.9 g/dL (3.5-5.0); BILIRUBIN,TOTAL 0.2 mg/dL (0.2-1.0); CREATININE 0.5 mg/dL (0.5-1.5); CRP QUANTITATIVE 93.9 mg/L (0.00-9.0); POTASSIUM 4.1 mmol/L (3.5-5.1); TOTAL PROTEIN, SERUM 5.7 g/dL (6.0-8.3)
[2020-03-18] MEDS ORDERED: PHARMACY COMMUNICATION MISC SCH ×2 (07:30→10:45)
[2020-03-18] MEDS: POLYETHYLENE GLYCOL 3350 17 GM POWD.PACK PO SCH (09:29)
[2020-03-18] MEDS: SENNOSIDES 8.6 MG TABLET GT SCH (09:29)
[2020-03-18] MEDS: FAMOTIDINE 20MG TAB 20 MG TAB PO SCH (09:29)
[2020-03-18] MEDS: TRYPSIN/BALSAM PERU/CASTOR OIL OINT 60GM TUBE TP SCH (09:30)
[2020-03-18] MEDS: DEXAMETHASONE SOD PHOSPHATE 4 MG/ML 1ML VIAL IVP SCH (09:30)
[2020-03-18] MEDS: CISATRACURIUM BESYLATE 100 MG in SODIUM CHLORIDE 0.9% 100 ML IV SCH ×2 (10:00→16:19)
[2020-03-18] MEDS ORDERED: CISATRACURIUM BESYLATE 2 MG/ML 10ML VIAL IVP SCH (10:30)
[2020-03-18] MEDS: FUROSEMIDE 10 MG/ML 2ML VIAL IV SCH ×2 (12:00→21:27)
[2020-03-18] MEDS: INSULIN GLARGINE 100 UNITS/ML 10 ML VIAL SQ SCH (21:31)
[2020-03-19] VITALS (41 sets, daily range): BP systolic 70–171; BP diastolic 34–86
[2020-03-19] MEDS: CEFEPIME HCL 2 GM VIAL IVP SCH ×3 (00:28→18:35)
[2020-03-19] MEDS: PROPOFOL 1000 MG/100 ML IV SCH ×5 (00:28→19:36)
[2020-03-19] MEDS: CISATRACURIUM BESYLATE 100 MG in SODIUM CHLORIDE 0.9% 100 ML IV SCH ×5 (00:29→19:37)
[2020-03-19 04:38] LABS: BASOPHILS % (AUTO) 0.6 % (0.0-5.0); EOSINOPHILS % (AUTO) 0.3 % (0.0-8.0); HEMATOCRIT 39.2 % (36-48); LYMPHOCYTES % (AUTO) 16.7 % (21.0-51.0); MEAN CORPUSCULAR HGB CONC 31.6 g/dL (32.0-36.0); MEAN CORPUSCULAR VOLUME 94.7 fL (79-99); MONOCYTES % (AUTO) 4.7 % (3.0-13.0); NEUTROPHILS % (AUTO) 71.8 % (40.0-77.0); NUCLEATED RED BLOOD CELLS 1.4 % (0.0-0.19); PLATELET COUNT (AUTO) 72 K/uL (130-400); RED BLOOD CELL COUNT(AUTO) 4.14 MIL/uL (4.00-5.50); RED CELL DISTRIBUTION WIDTH 14.6 % (11.0-15.5); WHITE BLOOD COUNT (AUTO) 7.7 K/uL (4.8-10.8)
[2020-03-19 05:07] LABS: ALBUMIN 2.2 g/dL (3.5-5.0); BILIRUBIN,TOTAL 0.3 mg/dL (0.2-1.0); CREATININE 0.5 mg/dL (0.5-1.5); CRP QUANTITATIVE 107.4 mg/L (0.00-9.0); POTASSIUM 3.8 mmol/L (3.5-5.1); TOTAL PROTEIN, SERUM 6.6 g/dL (6.0-8.3)
[2020-03-19] MEDS: KETAMINE IV SCH ×3 (06:26→22:06)
[2020-03-19] MEDS: SODIUM CHLORIDE 0.9% IV SCH ×3 (06:26→22:06)
[2020-03-19] MEDS: INSULIN HUMULIN R 100 UNIT/ML 3ML SQ SCH ×7 (08:12→21:00)
[2020-03-19] MEDS: TRYPSIN/BALSAM PERU/CASTOR OIL OINT 60GM TUBE TP SCH (08:15)
[2020-03-19] MEDS: DEXAMETHASONE SOD PHOSPHATE 4 MG/ML 1ML VIAL IVP SCH (08:15)
[2020-03-19] MEDS: LANSOPRAZOLE 15 MG SOLU TAB PEG SCH (10:00)
[2020-03-19] MEDS: FUROSEMIDE 10 MG/ML 2ML VIAL IV SCH ×2 (11:00→22:03)
[2020-03-20] VITALS (39 sets, daily range): BP systolic 101–171; BP diastolic 50–102
[2020-03-20] MEDS: CEFEPIME HCL 2 GM VIAL IVP SCH ×3 (01:55→17:42)
[2020-03-20] MEDS: CISATRACURIUM BESYLATE 100 MG in SODIUM CHLORIDE 0.9% 100 ML IV SCH ×4 (03:17→23:25)
[2020-03-20] MEDS: SODIUM CHLORIDE 0.9% IV SCH (03:18)
[2020-03-20] MEDS: KETAMINE IV SCH (03:18)
[2020-03-20] MEDS: PROPOFOL 1000 MG/100 ML IV SCH ×6 (03:18→23:23)
[2020-03-20] MEDS: INSULIN GLARGINE 100 UNITS/ML 10 ML VIAL SQ SCH ×2 (03:28→21:50)
[2020-03-20 05:32] LABS: BASOPHILS % (AUTO) 0.7 % (0.0-5.0); EOSINOPHILS % (AUTO) 0.2 % (0.0-8.0); LYMPHOCYTES % (AUTO) 15.6 % (21.0-51.0); MEAN CORPUSCULAR HEMOGLOBIN 30.8 pg (27.0-33.0); MEAN CORPUSCULAR HGB CONC 32.7 g/dL (32.0-36.0); MEAN CORPUSCULAR VOLUME 94.1 fL (79-99); MONOCYTES % (AUTO) 5.4 % (3.0-13.0); NEUTROPHILS % (AUTO) 71.6 % (40.0-77.0); NUCLEATED RED BLOOD CELLS 1.5 % (0.0-0.19); PLATELET COUNT (AUTO) 73 K/uL (130-400); RED BLOOD CELL COUNT(AUTO) 3.93 MIL/uL (4.00-5.50); RED CELL DISTRIBUTION WIDTH 14.6 % (11.0-15.5); WHITE BLOOD COUNT (AUTO) 6.2 K/uL (4.8-10.8)
[2020-03-20 05:56] LABS: BILIRUBIN,TOTAL 0.2 mg/dL (0.2-1.0); CREATININE 0.4 mg/dL (0.5-1.5); POTASSIUM 3.3 mmol/L (3.5-5.1); TOTAL PROTEIN, SERUM 6.1 g/dL (6.0-8.3)
[2020-03-20] MEDS: INSULIN HUMULIN R 100 UNIT/ML 3ML SQ SCH ×7 (08:11→21:51)
[2020-03-20] MEDS: DEXAMETHASONE SOD PHOSPHATE 4 MG/ML 1ML VIAL IVP SCH (08:15)
[2020-03-20] MEDS: LANSOPRAZOLE 15 MG SOLU TAB PEG SCH (08:15)
[2020-03-20] MEDS: MAGNESIUM CHLORIDE 70 MG TABLET.SA PO SCH (08:15)
[2020-03-20 08:29] LABS: ABG BASE EXCESS 4.4 mmol/L (-2.0-3.0); ABG HCO3 33.6 mmol/L (21.0-28.0); ABG OXYGEN SATURATION 82.5 % (95.0-99.0); ABG PCO2 71 mmHg (32-45)
[2020-03-20] MEDS ORDERED: POTASSIUM CHLORIDE 20 MEQ ERTAB PO PRN (08:45)
[2020-03-20] MEDS ORDERED: POTASSIUM CHLORIDE 20MEQ/100ML 100 ML IV PRN (08:45)
[2020-03-20] MEDS: POTASSIUM CHLORIDE 10% ELIXIR 20 MEQ/15 ML UDCUP PO PRN ×3 (10:08→14:29)
[2020-03-20] MEDS: FUROSEMIDE 10 MG/ML 2ML VIAL IV SCH ×2 (10:08→21:52)
[2020-03-20] MEDS: TRYPSIN/BALSAM PERU/CASTOR OIL OINT 60GM TUBE TP SCH (10:08)
[2020-03-21] VITALS (53 sets, daily range): BP systolic 76–134; BP diastolic 34–72
[2020-03-21] MEDS: CEFEPIME HCL 2 GM VIAL IVP SCH ×3 (02:03→17:47)
[2020-03-21] MEDS: CISATRACURIUM BESYLATE 100 MG in SODIUM CHLORIDE 0.9% 100 ML IV SCH ×2 (02:27→10:25)
[2020-03-21] MEDS: PROPOFOL 1000 MG/100 ML IV SCH ×3 (02:27→14:45)
[2020-03-21 03:45] LABS: ABG BASE EXCESS -1.1 mmol/L (-2.0-3.0); ABG HCO3 31.7 mmol/L (21.0-28.0); ABG OXYGEN SATURATION 87.2 % (95.0-99.0); ABG PCO2 102 mmHg (32-45)
[2020-03-21 04:36] LABS: BASOPHILS % (AUTO) 0.1 % (0.0-5.0); EOSINOPHILS % (AUTO) 0.9 % (0.0-8.0); HEMATOCRIT 41.5 % (36-48); LYMPHOCYTES % (AUTO) 18.7 % (21.0-51.0); MEAN CORPUSCULAR HEMOGLOBIN 29.9 pg (27.0-33.0); MEAN CORPUSCULAR HGB CONC 30.4 g/dL (32.0-36.0); MEAN CORPUSCULAR VOLUME 98.3 fL (79-99); MONOCYTES % (AUTO) 7.2 % (3.0-13.0); NEUTROPHILS % (AUTO) 65.6 % (40.0-77.0); NUCLEATED RED BLOOD CELLS 4.2 % (0.0-0.19); PLATELET COUNT (AUTO) 124 K/uL (130-400); RED BLOOD CELL COUNT(AUTO) 4.22 MIL/uL (4.00-5.50); RED CELL DISTRIBUTION WIDTH 15.2 % (11.0-15.5); WHITE BLOOD COUNT (AUTO) 12.4 K/uL (4.8-10.8)
[2020-03-21 04:45] LABS: CREATININE 0.4 mg/dL (0.5-1.5); CRP QUANTITATIVE 63.2 mg/L (0.00-9.0); POTASSIUM 3.6 mmol/L (3.5-5.1)
[2020-03-21] MEDS: INSULIN HUMULIN R 100 UNIT/ML 3ML SQ SCH ×7 (07:30→20:41)
[2020-03-21] MEDS: MIDAZOLAM 100MG-0.9% NS 100ML 100 ML IV SCH (07:56)
[2020-03-21] MEDS: LANSOPRAZOLE 15 MG SOLU TAB PEG SCH (08:01)
[2020-03-21] MEDS: DEXAMETHASONE SOD PHOSPHATE 4 MG/ML 1ML VIAL IVP SCH (08:02)
[2020-03-21 09:12] LABS: ABG HCO3 33.6 mmol/L (21.0-28.0); ABG OXYGEN SATURATION 86.8 % (95.0-99.0); ABG PCO2 91 mmHg (32-45)
[2020-03-21] MEDS ORDERED: PHARMACY COMMUNICATION MISC SCH (10:00)
[2020-03-21] MEDS: TRYPSIN/BALSAM PERU/CASTOR OIL OINT 60GM TUBE TP SCH (10:24)
[2020-03-21] MEDS: FUROSEMIDE 10 MG/ML 2ML VIAL IV SCH (10:24)
[2020-03-21] MEDS: MAGNESIUM CHLORIDE 70 MG TABLET.SA PO SCH (10:24)
[2020-03-21] MEDS: KETAMINE IV SCH ×2 (10:25→15:55)
[2020-03-21] MEDS: SODIUM CHLORIDE 0.9% IV SCH ×2 (10:25→15:55)
[2020-03-21] MEDS: SODIUM BICARB 50MEQ 50ML VIAL 150 MEQ in WATER FOR INJECTION,STERILE 1,000 ML IV SCH (11:05)
[2020-03-21 12:41] LABS: ABG BASE EXCESS 3.3 mmol/L (-2.0-3.0); ABG HCO3 34.7 mmol/L (21.0-28.0); ABG OXYGEN SATURATION 85.8 % (95.0-99.0); ABG PCO2 95 mmHg (32-45)
[2020-03-21] MEDS: INSULIN GLARGINE 100 UNITS/ML 10 ML VIAL SQ SCH (20:41)
[2020-03-21] MEDS ORDERED: NOREPINEPHRINE 4MG/NS 250ML 250 ML IV ONE (23:07)
[2020-03-22] VITALS (53 sets, daily range): BP systolic 65–155; BP diastolic 38–78
[2020-03-22] MEDS: CEFEPIME HCL 2 GM VIAL IVP SCH ×2 (00:31→10:17)
[2020-03-22] MEDS: NOREPINEPHRINE 4MG/NS 250ML 250 ML IV PRN ×3 (00:31→05:12)
[2020-03-22] MEDS: FUROSEMIDE 10 MG/ML 2ML VIAL IV SCH (00:32)
[2020-03-22] MEDS: PROPOFOL 1000 MG/100 ML IV SCH ×8 (00:43→22:39)
[2020-03-22] MEDS: CISATRACURIUM BESYLATE 100 MG in SODIUM CHLORIDE 0.9% 100 ML IV SCH ×4 (02:25→22:31)
[2020-03-22] MEDS: SODIUM BICARB 50MEQ 50ML VIAL 150 MEQ in WATER FOR INJECTION,STERILE 1,000 ML IV SCH ×2 (02:26→13:33)
[2020-03-22 04:59] LABS: ABG BASE EXCESS 0.9 mmol/L (-2.0-3.0); ABG HCO3 33.2 mmol/L (21.0-28.0); ABG OXYGEN SATURATION 81.4 % (95.0-99.0); ABG PCO2 104 mmHg (32-45)
[2020-03-22] MEDS ORDERED: NOREPINEPHRINE BIT/0.9 % NACL 250 ML IV ONE (04:59)
[2020-03-22] MEDS: SODIUM CHLORIDE 0.9% IV SCH ×4 (05:15→23:50)
[2020-03-22] MEDS: KETAMINE IV SCH ×4 (05:15→23:50)
[2020-03-22 06:19] LABS: BASOPHILS % (AUTO) 0.1 % (0.0-5.0); EOSINOPHILS % (AUTO) 0.6 % (0.0-8.0); HEMATOCRIT 39.5 % (36-48); LYMPHOCYTES % (AUTO) 18.8 % (21.0-51.0); MEAN CORPUSCULAR HEMOGLOBIN 30.4 pg (27.0-33.0); MEAN CORPUSCULAR HGB CONC 29.9 g/dL (32.0-36.0); MEAN CORPUSCULAR VOLUME 101.8 fL (79-99); MONOCYTES % (AUTO) 10.1 % (3.0-13.0); NUCLEATED RED BLOOD CELLS 20.8 % (0.0-0.19); PLATELET COUNT (AUTO) 157 K/uL (130-400); RED BLOOD CELL COUNT(AUTO) 3.88 MIL/uL (4.00-5.50); RED CELL DISTRIBUTION WIDTH 15.9 % (11.0-15.5); WHITE BLOOD COUNT (AUTO) 21.7 K/uL (4.8-10.8)
[2020-03-22 06:34] LABS: CREATININE 0.9 mg/dL (0.5-1.5); CRP QUANTITATIVE 115.7 mg/L (0.00-9.0); POTASSIUM 4.4 mmol/L (3.5-5.1)
[2020-03-22] MEDS ORDERED: NOREPINEPHRINE BITARTRATE 32 MG in SODIUM CHLORIDE 0.9% 250 ML IV SCH (07:00)
[2020-03-22] MEDS ORDERED: NOREPINEPHRINE BITARTRATE 16 MG in SODIUM CHLORIDE 0.9% 250 ML IV SCH (07:15)
[2020-03-22 07:23] LABS: BAND NEUTROPHILS % (MANUAL) 5 % (0-2); LYMPHOCYTES % (MANUAL) 17 % (22-44); MAN.DIFF COMMENT-IMPRESSION MANUAL DIFFERENTIAL; MONOCYTES % (MANUAL) 6 % (2-9); SEGMENTED NEUTROPHILS % 72 % (40-70)
[2020-03-22 07:27] LABS: PLATELET MORPHOLOGY COMMENT ADEQUATE
[2020-03-22] MEDS: INSULIN HUMULIN R 100 UNIT/ML 3ML SQ SCH ×7 (07:30→21:44)
[2020-03-22] MEDS: MAGNESIUM CHLORIDE 70 MG TABLET.SA PO SCH (09:06)
[2020-03-22] MEDS: LANSOPRAZOLE 15 MG SOLU TAB PEG SCH (09:06)
[2020-03-22] MEDS: DEXAMETHASONE SOD PHOSPHATE 4 MG/ML 1ML VIAL IVP SCH (09:06)
[2020-03-22] MEDS: TRYPSIN/BALSAM PERU/CASTOR OIL OINT 60GM TUBE TP SCH (09:06)
[2020-03-22] MEDS ORDERED: MEROPENEM 1 GM VIAL IVP SCH ×2 (09:45→15:00)
[2020-03-22] MEDS: NOREPINEPHRINE BITARTRATE 32 MG in SODIUM CHLORIDE 0.9% 250 ML IV SCH (12:54)
[2020-03-22] MEDS ORDERED: VANCOMYCIN 1.25 GM in SODIUM CHLORIDE 0.9% 250 ML IV SCH (15:00)
[2020-03-22] MEDS ORDERED: PHARMACY COMMUNICATION MISC SCH ×2 (15:00→15:15)
[2020-03-22] MEDS ORDERED: VANCOMYCIN PROTOCOL PER PHARMACY IV SCH (15:45)
[2020-03-22] MEDS ORDERED: VANCOMYCIN 2 GM in SODIUM CHLORIDE 0.9% 500ML 500 ML IV ONE (16:00)
[2020-03-22] MEDS: MICAFUNGIN 100MG+NS 100ML 100 ML IV SCH (17:08)
[2020-03-22] MEDS: INSULIN GLARGINE 100 UNITS/ML 10 ML VIAL SQ SCH (21:46)
[2020-03-22] MEDS: MEROPENEM 1 GM VIAL IVP SCH (22:30)
[2020-03-23] VITALS (60 sets, daily range): BP systolic 78–173; BP diastolic 44–87
[2020-03-23] MEDS: PROPOFOL 1000 MG/100 ML IV SCH ×5 (01:59→22:56)
[2020-03-23] MEDS: CISATRACURIUM BESYLATE 100 MG in SODIUM CHLORIDE 0.9% 100 ML IV SCH ×3 (02:42→22:05)
[2020-03-23 04:24] LABS: BASOPHILS % (AUTO) 0.7 % (0.0-5.0); EOSINOPHILS % (AUTO) 0.3 % (0.0-8.0); HEMATOCRIT 33.3 % (36-48); LYMPHOCYTES % (AUTO) 16.4 % (21.0-51.0); MEAN CORPUSCULAR HEMOGLOBIN 29.9 pg (27.0-33.0); MEAN CORPUSCULAR HGB CONC 30.6 g/dL (32.0-36.0); MEAN CORPUSCULAR VOLUME 97.7 fL (79-99); MONOCYTES % (AUTO) 6.5 % (3.0-13.0); NEUTROPHILS % (AUTO) 71.9 % (40.0-77.0); NUCLEATED RED BLOOD CELLS 2.6 % (0.0-0.19); PLATELET COUNT (AUTO) 74 K/uL (130-400); RED BLOOD CELL COUNT(AUTO) 3.41 MIL/uL (4.00-5.50); RED CELL DISTRIBUTION WIDTH 16.1 % (11.0-15.5); WHITE BLOOD COUNT (AUTO) 12.8 K/uL (4.8-10.8)
[2020-03-23 04:32] LABS: CREATININE 1.4 mg/dL (0.5-1.5); POTASSIUM 4.3 mmol/L (3.5-5.1)
[2020-03-23 04:55] LABS: ABG BASE EXCESS 6.7 mmol/L (-2.0-3.0); ABG HCO3 32.2 mmol/L (21.0-28.0); ABG OXYGEN SATURATION 94.5 % (95.0-99.0); ABG PCO2 51 mmHg (32-45)
[2020-03-23] MEDS: SODIUM BICARB 50MEQ 50ML VIAL 150 MEQ in WATER FOR INJECTION,STERILE 1,000 ML IV SCH ×2 (06:08→17:30)
[2020-03-23] MEDS: SODIUM CHLORIDE 0.9% IV SCH (06:08)
[2020-03-23] MEDS: KETAMINE IV SCH (06:08)
[2020-03-23] MEDS: INSULIN HUMULIN R 100 UNIT/ML 3ML SQ SCH ×7 (06:11→21:00)
[2020-03-23] MEDS: MEROPENEM 1 GM VIAL IVP SCH ×2 (08:24→20:45)
[2020-03-23] MEDS: DEXAMETHASONE SOD PHOSPHATE 4 MG/ML 1ML VIAL IVP SCH (08:25)
[2020-03-23] MEDS: TRYPSIN/BALSAM PERU/CASTOR OIL OINT 60GM TUBE TP SCH (08:25)
[2020-03-23] MEDS: LANSOPRAZOLE 15 MG SOLU TAB PEG SCH (08:25)
[2020-03-23] MEDS: MAGNESIUM CHLORIDE 70 MG TABLET.SA PO SCH (08:25)
[2020-03-23] MEDS ORDERED: FENTANYL CITRATE PF 0.05 MG/ML 1,000 MCG in SODIUM CHLORIDE 0.9% 100 ML IVPB SCH (10:00)
[2020-03-23] MEDS ORDERED: DEXTROSE 50%-WATER 50 ML DISP.SYRIN IV ONE (10:52)
[2020-03-23] MEDS ORDERED: DEXTROSE 50%-WATER 50 ML DISP.SYRIN IV SCH (11:00)
[2020-03-23] MEDS ORDERED: CISATRACURIUM BESYLATE IV SCH (11:00)
[2020-03-23] MEDS ORDERED: SODIUM CHLORIDE 0.9% IV SCH (11:00)
[2020-03-23] MEDS: FUROSEMIDE 10 MG/ML 2ML VIAL IV SCH ×2 (11:50→17:43)
[2020-03-23 12:22] LABS: ABG BASE EXCESS 6.9 mmol/L (-2.0-3.0); ABG HCO3 38.5 mmol/L (21.0-28.0); ABG PCO2 94 mmHg (32-45)
[2020-03-23] MEDS ORDERED: DEXTROSE 50%-WATER 50 ML DISP.SYRIN IV PRN (13:00)
[2020-03-23] MEDS ORDERED: GLUCAGON 1MG KIT 1 MG ML IM PRN (13:00)
[2020-03-23] MEDS ORDERED: [UNRECOGNIZED DRUG - OTHER] IV SCH (14:30)
[2020-03-23] MEDS ORDERED: SODIUM BICARB IV SCH (14:30)
[2020-03-23] MEDS ORDERED: SODIUM CHLORIDE IV SCH (14:30)
[2020-03-23] MEDS: VANCOMYCIN 1.25 GM in SODIUM CHLORIDE 0.9% 250 ML IV SCH (17:30)
[2020-03-23] MEDS: MICAFUNGIN 100MG+NS 100ML 100 ML IV SCH (17:30)
[2020-03-23] MEDS: NOREPINEPHRINE BITARTRATE 32 MG in SODIUM CHLORIDE 0.9% 250 ML IV SCH (19:35)
[2020-03-23] MEDS: INSULIN GLARGINE 100 UNITS/ML 10 ML VIAL SQ SCH (21:00)
[2020-03-23] MEDS: MIDAZOLAM 100MG-0.9% NS 100ML 100 ML IV SCH (21:20)
[2020-03-23] MEDS: FENTANYL 2500MCG+NS 250ML 250 ML IV SCH ×2 (21:20→22:54)
[2020-03-24] VITALS (30 sets, daily range): BP systolic 119–192; BP diastolic 65–106
[2020-03-24] MEDS: FUROSEMIDE 10 MG/ML 2ML VIAL IV SCH (03:16)
[2020-03-24] MEDS: PROPOFOL 1000 MG/100 ML IV SCH ×5 (03:18→22:14)
[2020-03-24 03:54] LABS: ABG BASE EXCESS 8.8 mmol/L (-2.0-3.0); ABG HCO3 36.1 mmol/L (21.0-28.0); ABG OXYGEN SATURATION 85.7 % (95.0-99.0); ABG PCO2 65 mmHg (32-45)
[2020-03-24] MEDS: INSULIN HUMULIN R 100 UNIT/ML 3ML SQ SCH ×7 (07:30→21:00)
[2020-03-24] MEDS: LANSOPRAZOLE 15 MG SOLU TAB PEG SCH (09:00)
[2020-03-24] MEDS: MEROPENEM 1 GM VIAL IVP SCH ×2 (09:03→22:17)
[2020-03-24] MEDS: DEXAMETHASONE SOD PHOSPHATE 4 MG/ML 1ML VIAL IVP SCH (09:03)
[2020-03-24] MEDS: MAGNESIUM CHLORIDE 70 MG TABLET.SA PO SCH (09:03)
[2020-03-24] MEDS: TRYPSIN/BALSAM PERU/CASTOR OIL OINT 60GM TUBE TP SCH (09:03)
[2020-03-24] MEDS: SODIUM BICARB 50MEQ 50ML VIAL 150 MEQ in WATER FOR INJECTION,STERILE 1,000 ML IV SCH (09:18)
[2020-03-24 10:14] LABS: BASOPHILS % (AUTO) 0.4 % (0.0-5.0); EOSINOPHILS % (AUTO) 0.2 % (0.0-8.0); HEMATOCRIT 31.9 % (36-48); LYMPHOCYTES % (AUTO) 14.8 % (21.0-51.0); MEAN CORPUSCULAR HEMOGLOBIN 30.1 pg (27.0-33.0); MONOCYTES % (AUTO) 6.8 % (3.0-13.0); NEUTROPHILS % (AUTO) 74.8 % (40.0-77.0); NUCLEATED RED BLOOD CELLS 4.8 % (0.0-0.19); PLATELET COUNT (AUTO) 89 K/uL (130-400); RED BLOOD CELL COUNT(AUTO) 3.29 MIL/uL (4.00-5.50); RED CELL DISTRIBUTION WIDTH 16.7 % (11.0-15.5); WHITE BLOOD COUNT (AUTO) 13.2 K/uL (4.8-10.8)
[2020-03-24 10:21] LABS: CREATININE 1.6 mg/dL (0.5-1.5); POTASSIUM 4.1 mmol/L (3.5-5.1)
[2020-03-24] MEDS ORDERED: FUROSEMIDE 10 MG/ML 4ML VIAL IV SCH (15:30)
[2020-03-24] MEDS ORDERED: FUROSEMIDE 10 MG/ML 4ML VIAL ONE (17:36)
[2020-03-24] MEDS: MICAFUNGIN 100MG+NS 100ML 100 ML IV SCH (17:38)
[2020-03-24] MEDS: VANCOMYCIN 1.25 GM in SODIUM CHLORIDE 0.9% 250 ML IV SCH (18:00)
[2020-03-24] MEDS: INSULIN GLARGINE 100 UNITS/ML 10 ML VIAL SQ SCH (22:09)
[2020-03-25] VITALS: BP 181/93
[2020-03-25] MEDS: PROPOFOL 1000 MG/100 ML IV SCH ×2 (02:41→08:20)
[2020-03-25 04:00] VITALS: BP 181/93
[2020-03-25 06:54] LABS: BASOPHILS % (AUTO) 0.4 % (0.0-5.0); EOSINOPHILS % (AUTO) 0.2 % (0.0-8.0); HEMATOCRIT 31.6 % (36-48); LYMPHOCYTES % (AUTO) 19.6 % (21.0-51.0); MEAN CORPUSCULAR HEMOGLOBIN 29.6 pg (27.0-33.0); MEAN CORPUSCULAR HGB CONC 30.4 g/dL (32.0-36.0); MEAN CORPUSCULAR VOLUME 97.5 fL (79-99); MONOCYTES % (AUTO) 8.7 % (3.0-13.0); NEUTROPHILS % (AUTO) 67.9 % (40.0-77.0); NUCLEATED RED BLOOD CELLS 10.2 % (0.0-0.19); PLATELET COUNT (AUTO) 118 K/uL (130-400); RED BLOOD CELL COUNT(AUTO) 3.24 MIL/uL (4.00-5.50); RED CELL DISTRIBUTION WIDTH 16.6 % (11.0-15.5); WHITE BLOOD COUNT (AUTO) 12.8 K/uL (4.8-10.8)
[2020-03-25 07:01] LABS: CREATININE 1.8 mg/dL (0.5-1.5); POTASSIUM 4.4 mmol/L (3.5-5.1)
[2020-03-25] MEDS: INSULIN HUMULIN R 100 UNIT/ML 3ML SQ SCH ×2 (07:08→07:30)
[2020-03-25 08:10] LABS: BAND NEUTROPHILS % (MANUAL) 1 % (0-2); LYMPHOCYTES % (MANUAL) 21 % (22-44); MONOCYTES % (MANUAL) 6 % (2-9); MYELOCYTES % 3 % (0-0); SEGMENTED NEUTROPHILS % 69 % (40-70)
[2020-03-25 08:11] LABS: MAN.DIFF COMMENT-IMPRESSION MANUAL DIFFERENTIAL; PLATELET MORPHOLOGY COMMENT SLIGHTLY DECREASED
[2020-03-25] MEDS: MEROPENEM 1 GM VIAL IVP SCH (08:15)
[2020-03-25] MEDS: DEXAMETHASONE SOD PHOSPHATE 4 MG/ML 1ML VIAL IVP SCH (08:16)
[2020-03-25] MEDS: LANSOPRAZOLE 15 MG SOLU TAB PEG SCH (08:17)
[2020-03-25] MEDS: MAGNESIUM CHLORIDE 70 MG TABLET.SA PO SCH (08:17)
[2020-03-25] MEDS: TRYPSIN/BALSAM PERU/CASTOR OIL OINT 60GM TUBE TP SCH (08:22)
[2020-03-25] MEDS ORDERED: VASOPRESSIN 40 UNITS in SODIUM CHLORIDE 0.9% 40 ML IV SCH (11:08)
== END 2020-03-25 11:20 | disposition expired | DRG 870 ==
LOC: EDH 01:27 → EDHIP 01:28 → 4AH 02-16 08:13 → 2CH 02-20 19:40 → 2DH 02-21 10:46 → 2BH 03-10 11:12
PROVIDERS: ADMIT Internal Medicine; ATTEND Internal Medicine
PROC: XW13325 Transfusion of Convalescent Plasma (Nonautologous) into Peripheral Vein, Percutaneous Approach, New Technology Group 5 (ICD-10-PCS; 2020-02-15)
PROC: XW033E5 Introduction of Remdesivir Anti-infective into Peripheral Vein, Percutaneous Approach, New Technology Group 5 (ICD-10-PCS; 2020-02-15)
PROC: 5A0935A Assistance with Respiratory Ventilation, Less than 24 Consecutive Hours, High Flow/Velocity Cannula (ICD-10-PCS; 2020-02-15)
PROC: 5A09357 Assistance with Respiratory Ventilation, Less than 24 Consecutive Hours, Continuous Positive Airway Pressure (ICD-10-PCS; 2020-02-16)
PROC: 5A0935A Assistance with Respiratory Ventilation, Less than 24 Consecutive Hours, High Flow/Velocity Cannula (ICD-10-PCS; 2020-02-16)
PROC: 5A0935A Assistance with Respiratory Ventilation, Less than 24 Consecutive Hours, High Flow/Velocity Cannula (ICD-10-PCS; 2020-02-18)
PROC: 5A0935A Assistance with Respiratory Ventilation, Less than 24 Consecutive Hours, High Flow/Velocity Cannula (ICD-10-PCS; 2020-02-21)
PROC: 5A0935A Assistance with Respiratory Ventilation, Less than 24 Consecutive Hours, High Flow/Velocity Cannula (ICD-10-PCS; 2020-02-25)
PROC: 5A0935A Assistance with Respiratory Ventilation, Less than 24 Consecutive Hours, High Flow/Velocity Cannula (ICD-10-PCS; 2020-02-26)
PROC: 5A0935A Assistance with Respiratory Ventilation, Less than 24 Consecutive Hours, High Flow/Velocity Cannula (ICD-10-PCS; 2020-02-27)
PROC: 5A0935A Assistance with Respiratory Ventilation, Less than 24 Consecutive Hours, High Flow/Velocity Cannula (ICD-10-PCS; 2020-02-28)
PROC: 5A0935A Assistance with Respiratory Ventilation, Less than 24 Consecutive Hours, High Flow/Velocity Cannula (ICD-10-PCS; 2020-02-29)
PROC: 5A0935A Assistance with Respiratory Ventilation, Less than 24 Consecutive Hours, High Flow/Velocity Cannula (ICD-10-PCS; 2020-03-01)
PROC: 5A0935A Assistance with Respiratory Ventilation, Less than 24 Consecutive Hours, High Flow/Velocity Cannula (ICD-10-PCS; 2020-03-02)
PROC: 5A09357 Assistance with Respiratory Ventilation, Less than 24 Consecutive Hours, Continuous Positive Airway Pressure (ICD-10-PCS; 2020-03-03)
PROC: 5A0935A Assistance with Respiratory Ventilation, Less than 24 Consecutive Hours, High Flow/Velocity Cannula (ICD-10-PCS; 2020-03-03)
PROC: 0W9B30Z Drainage of Left Pleural Cavity with Drainage Device, Percutaneous Approach (ICD-10-PCS; 2020-03-09)
PROC: 5A1955Z Respiratory Ventilation, Greater than 96 Consecutive Hours (ICD-10-PCS; principal; 2020-03-10)
PROC: 0BH17EZ Insertion of Endotracheal Airway into Trachea, Via Natural or Artificial Opening (ICD-10-PCS; 2020-03-10)
PROC: 5A09357 Assistance with Respiratory Ventilation, Less than 24 Consecutive Hours, Continuous Positive Airway Pressure (ICD-10-PCS; 2020-03-10)
DX: A41.89 Other specified sepsis (principal); U07.1 COVID-19; J12.82 Pneumonia due to coronavirus disease 2019; G04.91 Myelitis, unspecified; R65.21 Severe sepsis with septic shock; K72.00 Acute and subacute hepatic failure without coma; N17.0 Acute kidney failure with tubular necrosis; J80 Acute respiratory distress syndrome; E87.1 Hypo-osmolality and hyponatremia; E44.0 Moderate protein-calorie malnutrition; B37.0 Candidal stomatitis; J93.83 Other pneumothorax; N39.0 Urinary tract infection, site not specified; T79.7XXA Traumatic subcutaneous emphysema, initial encounter; Z68.41 Body mass index [BMI] 40.0-44.9, adult; E66.01 Morbid (severe) obesity due to excess calories; E11.65 Type 2 diabetes mellitus with hyperglycemia; B96.89 Other specified bacterial agents as the cause of diseases classified elsewhere; B97.89 Other viral agents as the cause of diseases classified elsewhere; D69.6 Thrombocytopenia, unspecified; E78.5 Hyperlipidemia, unspecified; E87.6 Hypokalemia; E87.70 Fluid overload, unspecified; E87.8 Other disorders of electrolyte and fluid balance, not elsewhere classified; I11.9 Hypertensive heart disease without heart failure; K12.30 Oral mucositis (ulcerative), unspecified; T38.0X5A Adverse effect of glucocorticoids and synthetic analogues, initial encounter; Z66 Do not resuscitate; Z74.01 Bed confinement status; Z83.3 Family history of diabetes mellitus
CPT/HCPCS: 31500; 36415; 36600; 71045; 80048; 80053; 80202; 81001; 82435; 82728; 82803; 82947; 82948; 83605; 83615; 83735; 83880; 84100; 84132; 84145; 84295; 84478; 84484; 85014; 85018; 85025; 85027; 85378; 85610; 85730; 86140; 86606; 86900; 86901; 86927; 87040; 87077; 87088; 87186; 87426; 87804; 93005; 94002; 94003; 94660; 97039; A4330; A4344; C1894; G0378; J0456; J0692; J0696; J1100; J1170; J1650; J1815; J1940; J2185; J2248; J2250; J2270; J2405; J2704; J3010; J3370; J3475; J3490; J7040; J7050; J7070; J7131